=== PATIENT | female | born 1955 | race Caucasian/White ===

== ENCOUNTER 2016-11-05 05:25 | Day surgery (SDC) | payer MEDICARE ==
[2016-11-04 15:34] LABS: HEMATOCRIT 41.2 % (36.0-48.0); HEMOGLOBIN 13.6 g/dL (12-16); MCH 29.3 pg (26.0-34.0); MCV 88.8 fL (80.0-100.0); MEAN PLATELET VOLUME 10.7 fL (7.4-10.4); RBC 4.64 10x6/uL (4.00-5.40); RDW 12.8 % (11.5-14.5); WBC 6.3 10x3/uL (4.8-10.8)
[~2016-11-05] VITALS: Ht 167.6 cm; Wt 90.7 kg
[~2016-11-05 05:25] MED LIST: GAVISCON E1 TAB.CHEW PO; NEXIUM20 MG PO; NEXIUM40 MG PO; PROZAC20 MG PO; TYLENOL W/CODEI1 TAB PO
[2016-11-05 09:59] VITALS: BP 130/76; Ht 167.6 cm; Wt 90.7 kg
--- NOTE | 2016-11-05 12:49 | NUR ---
1245-RECEIVED PT FROM OR SLEEPING WIHTOUT ANY DISTRESS POST OP SHOE ON LEFT FOOT FAMILY AT BEDSIDE WILL CONTINUE TO MONITOR
--- NOTE | 2016-11-05 13:27 | NUR ---
1327 LEFT FOOT ELEVATED AND ICED. NO NEEDS VOICED DROWSY.
--- NOTE | 2016-11-05 13:27 | NUR ---
3348 GAVE SCRIPTS TO FAMILY IBUPROFEN NORCO AND PHENERGAN. NO T HERE TO MAKE COPIES.
--- NOTE | 2016-11-05 14:26 | NUR ---
1350 IV DCD CATHETER INTACT WENT OVER DISCHARGE INSTRUCTIONS SHEET REVIEWED. HAS SCRIPTS FOR PHENERGAN NORCO AND IBUPROFEN ALREADY GIVEN TO FAMILY. 1400 TO HOME VIA W/C WITH FAMILY.
--- NOTE | 2016-11-26 16:40 | OP ---
PATIENT NAME: KRISTOPHER OGDEN MEDICAL RECORD: [id number] :51 LOCATION:JACK ADMISSION DATE: SURGEON: BURTON MANZANARES DATE OF OPERATION: 11/05/2016 SURGEON: Burton Manzanares DPM. PREOPERATIVE DIAGNOSIS: Hallux abductovalgus, left foot. POSTOPERATIVE DIAGNOSIS: Hallux abductovalgus, left foot. PROCEDURE: Marcos bunionectomy with one screw fixation, left foot. f ANESTHESIA: Local with monitored anesthesia care. HEMOSTASIS: Pneumatic ankle tourniquet inflated to 250 mmHg. ESTIMATED BLOOD LOSS: Minimal. MATERIALS: One 2.5-mm Eugene medical screw. INJECTABLES: 20 cc 0.5% bupivacaine plain. The patient has longstanding history of pain associated with the bunion deformity of the left foot. She has tried wider shoes to no avail. We have discussed the risks and benefits of the procedure, complications were discussed, her questions were answered. She was consented for Marcos bunionectomy of the left foot. The patient was brought in the operating room and placed in the operating table in supine position. A timeout was called with Dr. Manzanares, who identified the patient, the surgical site, and the surgery to be performed. Once appropriate anesthesia was obtained, the foot was prepped and draped in the usual aseptic manner. The pneumatic ankle tourniquet was inflated to 250 mmHg on the well-padded left ankle. Attention was directed to the dorsal aspect of the first metatarsophalangeal joint where a 6-cm linear incision was made. This incision was made just medial to the extensor hallucis longus tendon. This incision was carried deep through soft tissue with care being taken to retract all vital neurovascular structures. All bleeders were cauterized along the way. The first intermetatarsal space was then entered utilizing both blunt and sharp dissection. The conjoined tendon of the abductor hallucis muscle belly was then identified and sharply transected. The fibular sesamoidal ligament was also identified and sharply transected. Attention was then redirected to the dorsal aspect of the first metatarsophalangeal joint. The periosteum was then reflected from the joint, thus exposing the hypertrophied medial eminence of the first metatarsal head. Utilizing a sagittal saw, all hypertrophied bone was removed. Utilizing a sagittal saw, a V-shaped osteotomy was then created within the head of the first metatarsal. This is a through and through osteotomy with the apex oriented distally. The first metatarsal head was then translocated laterally on the metatarsal shaft and impacted. Next, utilizing the paper mill supervisor's recommended technique, one 2.5-mm screw was placed across the osteotomy. All remaining over OPERATIVE REPORT [id number] KRISTOPHER OGDEN bone from the medial aspect of the first metatarsal shaft was then removed with the sagittal saw. The surgical site was then irrigated with copious amounts of normal sterile saline. All sharp bone edges were then removed with a rasp. The periosteum was then reapproximated and coapted utilizing 3-0 Vicryl. The subcutaneous was then reapproximated and coapted utilizing 3-0 Vicryl. The skin was then reapproximated and coapted utilizing 4-0 nylon. A dressing consisting of Xeroform, 4 x 4's, Kerlix, and an Michi bandage was applied to the left foot. The pneumatic ankle tourniquet was deflated and capillary refill time is noted to be immediate to all digits of the left foot. The patient was discharged home with instructions to ice and elevate the left foot. She was dispensed a boot to help offload the surgical site. She has my cell phone number for any after hour difficulties and there were no complications with this procedure. TRANSINT:[id number] Voice Confirmation ID: [id number] DOCUMENT ID: [id number] BURTON MANZANARES at 1640 CC: [id number] DICTATION DATE: 11/05/16 1629 SITE SAFETY MANAGER: 11/05/162221 [facility] 11/05/16 [id number] [place] [address]
== END 2016-11-05 14:00 | disposition home or self-care (01) ==
LOC: D.PAN 05:25 → D.OPS 11:30 → D.PAN 14:00
PROVIDERS: Anesthesiology
DX: M20.12 Hallux valgus (acquired), left foot (principal)

== ENCOUNTER 2017-09-24 09:43 | Outpatient (CLI) | payer MEDICARE ==
[2016-11-05 09:59] VITALS: BMI 32.3
--- NOTE | ~2017-09-24 | OP ---
PATIENT NAME: KRISTOPHER OGDEN MEDICAL RECORD: [id number] :51 LOCATION:D.CAT ADMISSION DATE: SURGEON: BALJINDER HUBER MD DATE OF OPERATION: 09/24/2017 PROCEDURES: 1. PTCA stent to RCA. 2. Left heart catheterization. 3. Selective coronary angiography. 4. Left ventriculogram. INDICATION: Unstable angina. PROCEDURE IN DETAIL: After informed consent was obtained and after detailed explanation of risks, benefits as well as alternative therapies, the patient elected to proceed with angiogram and angioplasty. The right radial area was prepped and draped in normal sterile fashion. Right radial artery was cannulated via modified Seldinger technique with placement of 6-Turkmen sheath. All catheters exchanged through this sheath. FINDINGS: Left ventriculogram was performed in standard 30-degree RICHARDSON view, reveals good cardiac wall motion throughout all segments. Overall ejection fraction estimated at 60%. SELECTIVE CORONARY ANGIOGRAPHY: 1. Left main showed no significant angiographic disease. 2. Left anterior descending has 80% stenosis proximally and 80% stenosis mid vessel. 3. Left circumflex has mild irregularities, but no flow-limiting stenosis. 4. Right coronary artery has a 90% stenosis times 2 in the mid vessel. PTCA STENT OF THE RIGHT CORONARY ARTERY: The stent used covering both lesions was a 3.0 x 38 mm Chuckie. Result was 0% residual stenosis. OVERALL IMPRESSION: Successful percutaneous transluminal coronary angioplasty stent of the right coronary artery going from 90% initial stenosis to 0% residual. PLAN: PTCA stent of the LAD in the near future. TRANSINT:[id number] Voice Confirmation ID: [id number] DOCUMENT ID: [id number] BALJINDER HUBER MD at 1025 CC: [id number] DICTATION DATE: 09/24/17 1305 FLYING II INSTRUCTOR: 09/24/17 1414 DEP CLI 09/24/17 [place] [id number]
--- NOTE | ~2017-09-24 | HEMODYNAMI ---
PATIENT:KRISTOPHER OGDEN MEDICAL RECORD: [id number] : 51 LOCATION:DLAUREEN ADMISSION DATE: 09/24/17 Generatedon:09/24/201713:07 Patient name: KRISTOPHER OGDEN Patient #: [id number] SSN: DO B: 1955 Date of study: 09/24/2017 Page: Of Hemodynamic Procedure Report Patient Data Patient Demographics Procedure consent was obtained First Name: KRISTOPHER Gender: Female Last Name: ALIN : 1955 Middle Initial: J Age: 62 year(s) Patient #: [id number] Race: Unknown Additional ID: [id number] Contact details Address: [address] [place] [address] State: [place] City: [facility] Zip code: [address] Past Medical History Allergies: No known allergies Admission Admission Data Admission Date: 09/24/2017 Admission Time: 9:43 Lab Results Lab Result Date: 09/24/2017 Lab Result Time: 0:00 Biochemistry Name Units Result Min Max BUN mg/dl 12 --(-*--)-- 7 18 Creatinine mg/dl 0.7 --(*---)-- 0.6 1.3 CBC Name Units Result Min Max Hemoglobin g/dl 13.4 -*(----)-- 13.5 17.5 Procedure Procedure Types Cath Procedure Diagnostic Procedure [facility] w/Coronaries PCI Procedure Coronary Stent Coronary Stent Initial Miscellaneous Procedures Moderate Sedation up to 15 minutes Procedure Description Procedure Date Procedure Date: 09/24/2017 Procedure Start Time: 12:51 Procedure End Time: 13:06 Procedure Staff Name Function Ariel Fonseca MD Performing Physician Monika Doll RT Monitor Nadeen Cobb RT Scrub Brittney Cortes RN Nurse Procedure Data Cath Procedure Fluoroscopy Diagnostic fluoroscopy Total fluoroscopy Time: 3.6 time: 3.6 min min Diagnostic fluoroscopy Total fluoroscopy dose: 637 dose: 637 mGy mGy Contrast Material Contrast Material Type Amount (ml) Isovue 300 98 Entry Location Entry Primary Successful Side Size Upsize Upsize Entry Closure Mendoza ccessful Closure Location (Fr) 1 (Fr) 2 (Fr) Remarks Device Remarks Radial Right 6 Fr Mechanical artery Short Compression Estimated blood loss: 10 ml Diagnostic catheters Device Type Used For End Catheter Placement DIAGNOSTIC [place] 110cm 5 Procedure Fr catheter ([id number]) Procedure Complications No complications Procedure Medications Medication Administration Route Dosage 0.9% NaCl I.V. 100 ml/hr Oxygen NC 2 l/min Lidocaine 2% added to field 20 Heparin Flush Bag added to field 2 bags (1000units/500ml NS) Radial Cocktail added to field 1 syringe (Verapomil 2mg/Nitro 400mcg/Heparin 1500units) Fentanyl I.V. 50 mcg Versed I.V. 1 mg Versed I.V. 1 mg Fentanyl I.V. 50 mcg Heparin Bolus I.V. 4000 units Integrilin (Bolus I.V. 7.3 ml 2mg/ml) Hemodynamics Rest HGB: 13.4 (g/dl) Heart Rate: 64 (bpm) Snapshots Pre Cath Intra NCS Post Cath Vital Signs Time Heart Resp SPO2 etCO2 NIBP (mmHg) Rhythm Pain Sedation Rate (ipm) (%) (mmHg) Status Level (bpm) 12:32:47 64 25 99 36 143/91(125) NSR 0 (11) 10(A) , No pain 12:37:01 67 23 99 36.8 139/83(118) NSR 0 (11) 10(A) , No pain 12:41:11 65 24 95 39 119/82(107) NSR 0 (11) 10(A) , No pain 12:45:21 63 14 98 39 118/75(106) NSR 0 (11) 10(A) , No pain 12:49:33 65 23 97 33 119/65(106) NSR 0 (11) 10(A) , No pain 12:53:43 74 16 94 26.2 74/49(69) NSR 0 (11) 9(A) , No pain 12:57:42 73 17 97 36 91/52(72) NSR 0 (11) 9(A) , No pain 13:01:48 79 16 98 36 87/56(72) NSR 0 (11) 9(A) , No pain 13:05:50 82 16 98 39.8 89/58(74) NSR 0 (11) 10(A) , No pain Medications Time Medication Route Dose Verified Delivered Reason Note s Effectiveness by by 12:32:02 0.9% NaCl I.V. 100 Arielnadine Lugo used for ml/hr Marian Cortes RN procedure 12:32:11 Oxygen NC 2 l/min Ariel Lugo Per physician Marian Cortes RN 12:32:18 Lidocaine 2% added 20ml Arielnadine George for local to vial Marian Fonseca MD anesthetic field 12:32:26 Heparin Flush added 2 bags Ariel George used for Bag to Marian Fonseca MD procedure (1000units/500ml field NS) 12:32:35 Radial Cocktail added 1 Ariel Ariel for (Verapomil to syringe Marian Fonseca MD vasodilation 2mg/Nitro field 400mcg/Heparin 1500units) 12:50:38 Fentanyl I.V. 50 mcg Ariel Lugo for sedation Marian Cortes RN 12:50:47 Versed I.V. 1 mg Ariel Lugo for anxiety Marian Cortes RN 12:52:04 Versed I.V. 1 mg Ariel Lugo for anxiety Marian Cortes RN 12:52:10 Fentanyl I.V. 50 mcg Ariel Lugo for sedation Marian Cortes RN 12:57:09 Heparin Bolus I.V. 4000 Ariel Maciasfany for veri fied units Marian oCrtes RN anticoagulation by 12:57:24 Integrilin I.V. 7.3 ml Ariel Lugo for wast e (Bolus 2mg/ml) Marian Cortes RN antiplatelet 2.7ML therapy Procedure Log Time Note 12:14:21 Lab Result : Creatinine 0.7 mg/dl 12:14:21 Lab Result : BUN 12 mg/dl 12:14:21 Lab Result : Hemoglobin 13.4 g/dl 12:14:25 Lab results completed and on chart. 12:14:42 Nadeen Cobb RT(R) sent for patient. Start room use. 12:26:35 Patient received from ED to CCL 2 Alert and oriented. Tansferred to table in Supine position. 12:26:36 Warm blankets applied, and blanca hugger turned on for patient comfort. 12:26:37 Correct patient and procedure confirmed by team. 12::38 Signed procedure consent form obtained from patient. 12::39 ECG and BP/O2 sat monitors applied to patient. 12::44 Vital chart was started 12:32:02 0.9% NaCl 100 ml/hr I.V. was administered by Brittney Cortes RN; used for procedure; 12:32:05 Baseline sample Acquired. 12:32:11 Oxygen 2 l/min NC was administered by Brittney Cortes RN; Per physician; 12:32:18 Lidocaine 2% 20ml vial added to field was administered by Ariel Fonseca MD; for local anesthetic; 12:32:26 Heparin Flush Bag (1000units/500ml NS) 2 bags added to field was administered by Ariel Fonseca MD; used for procedure; 12:32:35 Radial Cocktail (Verapomil 2mg/Nitro 400mcg/Heparin 1500units) 1 syringe added to field was administered by Ariel Fonseca MD; for vasodilation; 12:34:52 Baseline sample Acquired. 12:34:57 Rhythm: sinus rhythm 12:34:58 Full Disclosure recording started 12:35:02 H&P Date Dictated: 09/24/2017 Within 30 days and on chart.. 12:35:03 Pre-procedure instructions explained to patient. 12:35:03 Pre-op teaching completed and patient verbalized understanding. 12:35:08 Family in waiting room. 12:35:11 Patient NPO since Breakfast. 12:37:16 Patient allergic to No known allergies 12:37:18 Is the patient allergic to Iodine/contrast media? No. 12:37:21 Is patient on blood thinner?Yes 12:37:23 ACC The patient was administered the following blood thiners within the last 24 hours: ACCPlavix 12:37:27 Patient diabetic? No. 12:37:28 Patient not . Patient has had tubal. 12:37:31 Previous problem with sedation/anesthesia? No ? 12:37:32 Snore? Yes 12:37:33 Sleep apnea? Yes 12:37:34 Deviated septum? No 12:37:35 Opens mouth fully? Yes 12:37:36 Sticks out tongue? Yes 12:37:38 Airway obstruction? No ? 12:37:40 Dentures? No ? 12:37:44 Modified Carlos's test Ulnar < 7 seconds 12:37:46 Patient pain scale 0/10 ?. 12:38:03 IV patent on arrival in right forearm with 0.9% NaCl at [facility]. 12:38:09 Right Radial & Right Groin area was prepped with chlora-prep and draped in sterile fashion 12:38:10 Alarms reviewed by R. N. 12:38:10 Sharps counted by scrub and verified by R.N. 12:39:14 Use device set Radial Dx or PCI 12:39:15 ACIST Syringe (91295) opened to sterile field. 12:39:17 Bag Decanter (2002S) opened to sterile field. 12:39:19 ACIST Manifold (35718) opened to sterile field. 12:39:20 ACIST Hand Control (52693) opened to sterile field. 12:39:20 Tegaderm 4 x 4 (1626W) opened to sterile field. 12:39:23 Medline Cath Pack ([id number]) opened to sterile field. 12:39:24 SHEATH 6FR Slender ([id number]) opened to sterile field. 12:39:24 DIAGNOSTIC WIRE .035 260cm J wire (057783) opened to sterile field. 12:39:27 MBrace Wrist Support ([id number]) opened to sterile field. 12:45:17 Zero performed for pressure channel P1 12:48:36 --------ALL STOP TIME OUT------ 12:48:37 Final Timeout: patient, procedure, and site verified with staff and physician. All members of the team are in agreement. 12:48:38 Right Radial & Right Groin site verified by team. 12:48:41 Physical assessment completed. ASA score P 2 - A patient with mild systemic disease as per Ariel Fonseca MD. 12:48:44 Sedation plan: IV Moderate Sedation Medication:Versed, Fentanyl 12:50:38 Fentanyl 50 mcg I.V. was administered by Brittney Cortes RN; for sedation; 12:50:47 Versed 1 mg I.V. was administered by Brittney Cortes RN; for anxiety; 12:51:16 Procedure started. 12:51:21 Local anesthetic to right radial artery with Lidocaine 2% by Ariel Fonseca MD.INITIAL ACCESS ONLY 12:52:04 Versed 1 mg I.V. was administered by Brittney Cortes RN; for anxiety; 12:52:08 A 6 Fr Short sheath was inserted into the Right Radial artery 12:52:10 Fentanyl 50 mcg I.V. was administered by Brittney Cortes RN; for sedation; 12:53:00 A DIAGNOSTIC [place] 110cm 5 Fr catheter (555185) was advanced over the wire and used for Procedure. 12:53:18 LV gram done using RICHARDSON 12:53:34 EF : 60 % 12:53:37 Injector settings: Ml/sec: 7, Volume: 15, 12:54:08 LCA angiography performed. 12:55:13 RCA angiography performed. 12:56:17 Catheter removed. 12:56:27 CHOICE PT Extra Support J 300cm guide wire ([id number]) opened to sterile field. 12:56:29 GUIDE 6FR AR 2.0 catheter ([id number]) opened to sterile field. 12:56:37 6 Fr AR2 guide catheter was inserted over the wire 12:56:43 CHOICE PT 300 wire advanced. 12:56:51 Merit INFLATION SYRINGE opened to sterile field. 12:57:09 Heparin Bolus 4000 units I.V. was administered by Brittney Cortes RN; for anticoagulation; verified by 12:57:24 Integrilin (Bolus 2mg/ml) 7.3 ml I.V. was administered by Brittney Cortes RN; for antiplatelet therapy; waste 2.7ML 12:58:14 Wire advanced across lesion. 12:59:55 Inflation number: 1 A EUPHORA 3.0 x 20 Balloon ([id number]) was prepped and advanced across the Mid RCA, then inflated to 13 ANNALEE for 0:00 (min:sec). 13:00:07 Inflation number: 2 The EUPHORA 3.0 x 20 Balloon ([id number]) was reinflated across the Mid RCA, to 13 ANNALEE for 0:10 (min:sec). 13:00:41 Balloon removed over the wire. 13:01:45 Inflation Number: 3 A DELBERT OTW 3.0 x 38 stent ([id number]) was prepped and advanced across the Mid RCA. The stent was deployed at 13 ANNALEE for 0:10 (min:sec). 13:02:53 Stent catheter was removed intact over wire. 13:02:54 Wire removed. 13:02:54 Guide catheter removed. 13:03:59 TR BAND Standard ([id number]) opened to sterile field. 13:04:07 Sheath removed intact; hemostasis achieved with Mechanical Compression to the Right Radial artery. 13:04:09 Procedure ended.(Physican Out) 13:04:18 Fluoroscopy time 03.60 minutes. 13:04:22 Fluoroscopy dose: 637 mGy 13:04:22 Flurop Dose total: 637 13:04:26 Contrast amount:Isovue 300 98ml. 13:04:27 Sharps counted by scrub and verified by R.N. 13:04:31 TR band inflated with 10cc of air. 13:05:29 Post-procedure physical assessment completed. ASA score P 2 - A patient with mild systemic disease as per Ariel Fonseca MD. 13:05:32 Post procedure rhythm: unchanged. 13:05:35 Estimated blood loss: 10 ml 13:05:41 Post procedure instruction explained to patient.Patient verbalizes understanding. 13:05:42 Patient needs reinforcement of post procedure teaching. 13:05:51 Procedure type changed to Cath procedure, Diagnostic procedure, LHC, LHC w/Coronaries, PCI procedure, Coronary Stent, Coronary Stent Initial, Miscellaneous Procedures, Moderate Sedation up to 15 minutes 13:06:27 Procedure and supply charges have been captured, reviewed, submitted and are correct. 13:06:29 Procedure Complication : No complications 13:06:31 Vital chart was stopped 13:06:33 See physician's report for complete and final results. 13:06:35 Report given to Pre/Post Procedure Room. 13:06:38 Patient transfered to Pre/Post Procedure Room with Bed. 13:06:42 Procedure ended. 13:06:42 Full Disclosure recording stopped 13:06:47 End room use (Document Last) Intervention Summary Intervention Notes Time ActionType Lesion and Equipment Action# Pressure Duration Attributes Used 12:59:55 Inflate Mid RCA EUPHORA 3.0 x 1 13 00:00 balloon 20 Balloon ([id number]) 13:00:07 Reinflate Mid RCA EUPHORA 3.0 x 2 13 00:10 balloon 20 Balloon ([id number]) 13:01:45 Place stent Mid RCA DELBERT OTW 3.0 3 13 00:10 x 38 stent ([id number]) Device Usage Item Name Manufacture Quantity Catalog Number Hospital Part Current [facility] Lot# / Charge Number Stock Stock Serial# Code ACIST Syringe Acist 1 92047 933416 424418 [id number] 20 (96569) Medical Systems Inc Bag Decanter Microtek 1 2001S 989394 77108 597381 5 (2001S) Medical Inc. ACIST Acist 1 40949 478219 979960 010517 5 Manifold Medical (27847) Systems Inc ACIST Hand Acist 1 72981 954682 120522 067455 5 Control Medical (01076) Systems Inc Tegaderm 4 x 3M 1 1626W 466075 319995 366116 5 4 (1626W) Medline Cath Cardinal 1 [id number] 780279 12661 088454 5 Pack [facility] ([id number]) SHEATH 6FR Terumo 1 [id number] 844357 546017 401734 40 Slender ([id number]) DIAGNOSTIC St Sergio 1 047758 660155 683642 019240 30 WIRE .035 260cm J wire (785884) MBrace Wrist Advanced 1 140-0250-00 742897 46110 793584 5 Support Vascular ([id number]) Dynamics DIAGNOSTIC Terumo 1 40-5013 982167 795988 861610 5 [place] 110cm 5 Fr catheter (722730) CHOICE PT [place] 1 [id number] 461413 026667 547543 5 Extra Support Scientific J 300cm guide wire ([id number]) GUIDE 6FR AR Medtronic 1 [id number] 551908 21358 755583 1 2.0 catheter ([id number]) Merit Medtronic 1 A08A 259478 71015 600547 5 INFLATION SYRINGE EUPHORA 3.0 x Medtronic 1 [id number] 870412 418204 050175 5 20 Balloon ([id number]) DELBERT OTW 3.0 Medtronic 1 [id number] 821573 7631305 750652 5 x 38 stent ([id number]) TR BAND Terumo 1 [id number] 868836 071130 378910 40 Standard ([id number]) Signature Audit [place] Stage Time Signature Unsigned Intra-Procedure 09/24/2017 Monika Doll 1:07:16 PM RT(R) Signatures Monitor : Monika Doll Signature : RT Date : Time : [place] [id number] [place] [address]
--- NOTE | ~2017-09-24 | CN ---
PATIENT NAME:KRISTOPHER OGDEN MEDICAL RECORD: [id number] : 51 LOCATION:D.CAT ADMIT DATE: ACCOUNT: [id number] CONSULTING PHYSICIAN: BALJINDER HUBER MD REFERRING PHYSICIAN: TEO PYLE MD DATE OF CONSULTATION: 09/24/2017 ADMITTING DIAGNOSES: 1. Chest pain compatible with angina. 2. Family history of coronary artery disease. HISTORY OF PRESENT ILLNESS: Ms. Ogden has had 1 month of increasing episodes of chest pain, chest discomfort compatible with angina with radiation to the left arm, a dull aching sensation across the anterior chest, very compatible with anginal symptomatology. Severe episodes today lasting multiple hours, still having chest pain. Her EKG is with nonspecific ST-T abnormalities. PHYSICAL EXAMINATION: GENERAL APPEARANCE: Well-nourished, well-developed, appears stated age. Level of distress, comfortable. PSYCHIATRIC: Mental status, alert, normal affect. Orientation, oriented to time, place and person. EYES: Lids and conjunctiva, noninjected. No discharge, no pallor. ENT: Lips, teeth, gums, normal dentition. Oropharynx, no cyanosis, no pallor. NECK: Carotid arteries, bilateral normal upstroke, no bruits, no thrills. JUGULAR VEINS: No jugular venous pressure or distention. CERVICAL LYMPH NODES: Nontender, nonenlarged. THYROID: Not enlarged. Nontender. No nodules. LUNGS: Respiratory effort, unlabored. CHEST: Normal curvature. No thoracic deformity. No chest wall tenderness. Percussion, resonant. Auscultation, clear. No wheezes, no rales, no rhonchi. CARDIOVASCULAR: Precordial exam, nondisplaced. No heaves or pericardial thrills. Rate and rhythm, regular. Heart sounds, normal S1, normal S2. No S3, no gallop, no rub. Systolic murmur, not heard. Diastolic murmur, not heard. EXTREMITIES: No cyanosis, no edema. Peripheral pulses, full and equal in all extremities, except as noted. No bruits appreciated. ABDOMEN: Soft, nondistended. Normal aorta. No bruit. Nontender. No masses. Liver, nontender, no hepatomegaly. Spleen, nontender, no splenomegaly. MUSCULOSKELETAL: No joint tenderness. No joint swelling. No erythema. NEUROLOGICAL: Normal gait, normal strength, normal tone. SKIN: Warm and dry. REVIEW OF SYSTEMS: The patient reports easy bruising but reports no swollen glands. The patient reports no fever, no night sweats, no significant weight gain, no significant weight loss. No significant exercise tolerance. The patient reports no dry eyes, no irritation, no vision change. Patient reports no difficulty hearing and no ear pain. Patient reports no frequent nose bleeds or nose and sinus problems. Patient reports on arm pain on exertion. No shortness of breath while lying down. No history of heart murmur. Patient reports no cough, no wheezing or coughing up blood. Patient reports no abdominal pain, no vomiting. Normal appetite. No diarrhea and not vomiting blood. No nausea and no constipation. Patient reports no incontinence. No difficulty urinating. No hematuria. No increased frequency. Patient reports no muscle aches. No weakness, no arthralgias, no back pain. No swelling of the extremities. Patient reports no abnormal mole, no jaundice, no rashes. Reports CONSULT REPORT [id number] KRISTOPHER OGDEN no loss of consciousness. No weakness and no numbness. No seizures, dizziness, or headaches. The patient reports no depression, no sleep disturbance, feeling safe in a relationship and no alcohol abuse. Patient reports on fatigue. Reports no runny nose or sinus pressure. No itching, no hives, and no frequent sneezing. OVERALL IMPRESSION: Chest pain in an escalating unstable fashion, most likely she has hemodynamically significant coronary artery disease. We will proceed with coronary angiography. Further care depends upon findings of the angiography. TRANSINT:[id number] Voice Confirmation ID: [id number] DOCUMENT ID: [id number] BALJINDER HUBER MD at 1025 CC: [id number] DICTATION DATE: 09/24/17 1136 STOCK ROLLER: 09/24/17 1323 DEP CLI 09/24/17 [place] [address]
[2017-09-24 10:27] LABS: BASOPHILS 0.6 % (0-2); EOSINOPHILS 0.8 % (0-7); HEMATOCRIT 39.8 % (36.0-48.0); HEMOGLOBIN 13.4 g/dL (12-16); IMMATURE GRANULOCYTES 0.2 % (0-5); LYMPHOCYTES 45.3 % (15-50); MCH 29.4 pg (26.0-34.0); MCHC 33.7 g/dL (31.0-37.0); MCV 87.3 fL (80.0-100.0); MEAN PLATELET VOLUME 10.7 fL (7.4-10.4); NEUTROPHILS 46.1 % (40-80); PLATELET COUNT 235 10x3/uL (130-400); RBC 4.56 10x6/uL (4.00-5.40); RDW 12.7 % (11.5-14.5); WBC 5.2 10x3/uL (4.8-10.8)
[2017-09-24 10:34] LABS: ALBUMIN 3.4 g/dL (3.4-5.0); ALKALINE PHOSPHATASE 86 U/L (46-116); ALT (SGPT) 35 U/L (10-68); BILIRUBIN - TOTAL 0.49 mg/dL (0.2-1.3); CALC OSMOLALITY 275 mosm/kg (275-300); CALCIUM 9.2 mg/dL (8.5-10.1); CARBON DIOXIDE 27.3 mmol/L (21.0-32.0); CHLORIDE - SERUM 102 mmol/L (98-107); CREATININE - SERUM 0.7 mg/dL (0.6-1.3); GLUCOSE 105 mg/dL (74-106); PROTEIN - SERUM 6.8 g/dL (6.4-8.2); SODIUM 138 mmol/L (136-145); UREA NITROGEN 12 mg/dL (7-18); eGFR NON AFRICAN AMERICAN 89 mL/min (90-120)
[2017-09-24 10:37] LABS: POTASSIUM - SERUM 4.5 mmol/L (3.5-5.1)
[2017-09-24 10:46] LABS: CHOL - HDL RATIO 5.8 ratio (2.3-4.1); CHOLESTEROL, TOTAL 250 mg/dL (0-200); CKMB 0.5 U/L (0.0-3.6); CREATINE KINASE 84 UL (21-215); HDL CHOLESTEROL 43 mg/dL (32-96); LDL CHOLESTEROL 183 mg/dL (0-100); LDL-HDL RATIO 4.3 ratio (1.5-3.5); TRIGLYCERIDE 123 mg/dL (30-200); TROPONIN-I < 0.017 ng/mL (0.000-0.060)
[2017-09-24 13:15] LABS: APPEARANCE HAZY (CLEAR); BILIRUBIN NEGATIVE (NEGATIVE); COLOR YELLOW (YELLOW); GLUCOSE NEGATIVE (NEGATIVE); KETONE NEGATIVE (NEGATIVE); NITRITE NEGATIVE (NEGATIVE); PROTEIN NEGATIVE (NEGATIVE); SPECIFIC GRAVITY 1.015 (1.005-1.020); UROBILINOGEN NORMAL (NORMAL)
[2017-09-24 13:16] LABS: BACTERIA FEW /hpf (NONE SEEN); EPITHELIAL CELLS 0-5 /hpf (0-5); MUCUS <1+ /lpf (NONE SEEN); WHITE CELLS - URINE 0-5 /hpf (0-5)
[2017-09-24] MEDS ORDERED: BAYER CHEWABLE81 MG PO (13:25)
[2017-09-24] MEDS ORDERED: PLAVIX75 MG PO (13:25)
== END 2017-09-24 17:00 | disposition home or self-care (01) ==
LOC: D.CATH 09:43 → D.ER 09:43 → EDSTATUS 13:00 → D.CATH 17:00
PROVIDERS: Emergency Medicine; Nurse Practitioner Family
DX: I20.0 Unstable angina (principal); Z82.49 Family history of ischemic heart disease and other diseases of the circulatory system; Z01.812 Encounter for preprocedural laboratory examination
CPT/HCPCS: 93458; C9600

== ENCOUNTER 2017-09-29 07:41 | Outpatient (CLI) | payer MEDICARE ==
[~2017-09-29] VITALS: Ht 167.6 cm; Wt 81.8 kg
--- NOTE | ~2017-09-29 | OP ---
PATIENT NAME: KRISTOPHER OGDEN MEDICAL RECORD: [id number] :51 LOCATION:D.CAT ADMISSION DATE: SURGEON: BALJINDER HUBER MD DATE OF OPERATION: 09/29/2017 PROCEDURES: 1. PTCA stent to LAD. 2. Selective coronary angiography. INDICATION: Angina and coronary artery disease. PROCEDURE IN DETAIL: After informed consent was obtained and after a detailed explanation of the risks, benefits as well as alternative therapies, the patient elected to proceed with angiogram and angioplasty. The right radial area was prepped and draped in normal sterile fashion. The right radial artery was cannulated via modified Seldinger technique with placement of 6-Bahamian sheath. All catheters exchanged through this sheath. FINDINGS: The left anterior descending has 80% stenosis proximally, 90% stenosis in the mid vessel. The proximal lesion was addressed with a 3.0 x 12, the mid vessel with a 2.5 x 15, both Gentry stents. Result was 0% residual stenosis. OVERALL IMPRESSION: Successful percutaneous transluminal coronary angioplasty stent of the left anterior descending going from 90% initial stenosis to 0% residual. TRANSINT:[id number] Voice Confirmation ID: [id number] DOCUMENT ID: [id number] BALJINDER HUBER MD at 1025 CC: [id number] DICTATION DATE: 09/29/17 0956 FOREST FIRE OFFICER: 09/29/17 1025 [facility] CLI 09/29/[address] [address]
--- NOTE | ~2017-09-29 | HP ---
PATIENT: KRISTOPHER OGDEN MEDICAL RECORD: [id number] ACCOUNT: [id number] LOCATION:IVÁN : 51 ADMISSION DATE: 09/29/17 HISTORY AND PHYSICAL EXAMINATION ADMITTING DIAGNOSES: 1. Angina. 2. Recent PTCA stent of the RCA with concomitant disease to LAD. HISTORY OF PRESENT ILLNESS: Mrs. Ogden presents with unstable anginal symptomatology, found to have 2-vessel disease of the RCA and LAD, underwent successful PTCA stent of the RCA, now brought back for PTCA stent of the LAD. PHYSICAL EXAMINATION: GENERAL APPEARANCE: Well-nourished, well-developed, appears stated age. Level of distress, comfortable. PSYCHIATRIC: Mental status, alert, normal affect. Orientation, oriented to time, place and person. EYES: Lids and conjunctiva, noninjected. No discharge, no pallor. ENT: Lips, teeth, gums, normal dentition. Oropharynx, no cyanosis, no pallor. NECK: Carotid arteries, bilateral normal upstroke, no bruits, no thrills. JUGULAR VEINS: No jugular venous pressure or distention. CERVICAL LYMPH NODES: Nontender, nonenlarged. THYROID: Not enlarged. Nontender. No nodules. LUNGS: Respiratory effort, unlabored. CHEST: Normal curvature. No thoracic deformity. No chest wall tenderness. Percussion, resonant. Auscultation, clear. No wheezes, no rales, no rhonchi. CARDIOVASCULAR: Precordial exam, nondisplaced. No heaves or pericardial thrills. Rate and rhythm, regular. Heart sounds, normal S1, normal S2. No S3, no gallop, no rub. Systolic murmur, not heard. Diastolic murmur, not heard. EXTREMITIES: No cyanosis, no edema. Peripheral pulses, full and equal in all extremities, except as noted. No bruits appreciated. ABDOMEN: Soft, nondistended. Normal aorta. No bruit. Nontender. No masses. Liver, nontender, no hepatomegaly. Spleen, nontender, no splenomegaly. MUSCULOSKELETAL: No joint tenderness. No joint swelling. No erythema. NEUROLOGICAL: Normal gait, normal strength, normal tone. SKIN: Warm and dry. REVIEW OF SYSTEMS: The patient reports easy bruising but reports no swollen glands. The patient reports no fever, no night sweats, no significant weight gain, no significant weight loss. No significant exercise tolerance. The patient reports no dry eyes, no irritation, no vision change. Patient reports no difficulty hearing and no ear pain. Patient reports no frequent nose bleeds or nose and sinus problems. Patient reports on arm pain on exertion. No shortness of breath while lying down. No history of heart murmur. Patient reports no cough, no wheezing or coughing up blood. Patient reports no abdominal pain, no vomiting. Normal appetite. No diarrhea and not vomiting blood. No nausea and no constipation. Patient reports no incontinence. No difficulty urinating. No hematuria. No increased frequency. Patient reports no muscle aches. No weakness, no arthralgias, no back pain. No swelling of the extremities. Patient reports no abnormal mole, no jaundice, no rashes. Reports no loss of consciousness. No weakness and no numbness. No seizures, dizziness, or headaches. The patient reports no depression, no sleep disturbance, feeling safe in a relationship and no alcohol abuse. Patient reports on fatigue. Reports no runny nose or sinus pressure. No itching, no hives, and no frequent HISTORY AND PHYSICAL [id number] KRISTOPHER OGDEN sneezing. OVERALL IMPRESSION: Anginal symptomatology with critical disease of the LAD. We will proceed with PTCA stent of the LAD. TRANSINT:[id number] Voice Confirmation ID: [id number] DOCUMENT ID: [id number] BALJINDER HUBER MD at 1025 CC: [id number] DICTATION DATE: 09/29/[address] FORMS: 09/29/17 1021 [facility] CLI 09/29/[address] [address]
--- NOTE | ~2017-09-29 | HEMODYNAMI ---
PATIENT:KRISTOPHER OGDEN MEDICAL RECORD: [id number] : 51 LOCATION:DLAUREEN ADMISSION DATE: 09/29/17 Generatedon:09/29/20179:55 Patient name: KRISTOPHER OGDEN Patient #: [id number] SSN: DO B: 1955 Date of study: 09/29/2017 Page: Of Hemodynamic Procedure Report Patient Data Patient Demographics Procedure consent was obtained First Name: KRISTOPHER Gender: Female Last Name: ALIN : 1955 Middle Initial: J Age: 62 year(s) Patient #: [id number] Race: Unknown Additional ID: [id number] Contact details Address: [address] [place] [address] State: [place] [facility] [place]: [address] Past Medical History Allergies: No known allergies Admission Admission Data Admission Date: 09/29/2017 Admission Time: 7:41 Lab Results Lab Result Date: 09/24/2017 Lab Result Time: 0:00 Biochemistry Name Units Result Min Max BUN mg/dl 12 --(-*--)-- 7 18 Creatinine mg/dl 0.7 --(*---)-- 0.6 1.3 CBC Name Units Result Min Max Hemoglobin g/dl 13.4 -*(----)-- 13.5 17.5 Procedure Procedure Types Cath Procedure PCI Procedure Coronary Stent Coronary Stent Initial Miscellaneous Procedures Moderate Sedation up to 30 minutes Procedure Description Procedure Date Procedure Date: 09/29/2017 Procedure Start Time: 9:41 Procedure End Time: 9:52 Procedure Staff Name Function Ariel Fonseca MD Performing Physician Nadeen Cobb RT Monitor Elizabeth Centeno RT Scrub Erika Hutchinson RN Nurse Procedure Data Cath Procedure Fluoroscopy Diagnostic fluoroscopy Total fluoroscopy Time: 2.2 time: 2.2 min min Diagnostic fluoroscopy Total fluoroscopy dose: 373 dose: 373 mGy mGy Contrast Material Contrast Material Type Amount (ml) Isovue 300 45 Entry Location Entry Primary Successful Side Size Upsize Upsize Entry Closure Mendoza ccessful Closure Location (Fr) 1 (Fr) 2 (Fr) Remarks Device Remarks Radial Right 6 Fr Mechanical artery Short Compression Estimated blood loss: 5 ml Procedure Complications No complications Procedure Medications Medication Administration Route Dosage Oxygen NC 2 l/min Lidocaine 2% added to field 20 Heparin Flush Bag added to field 2 bags (1000units/500ml NS) 0.9% NaCl I.V. 100 ml/hr Radial Cocktail I.A. 1 syringe (Verapomil 2mg/Nitro 400mcg/Heparin 1500units) Versed I.V. 1 mg Fentanyl I.V. 50 mcg Versed I.V. 1 mg Fentanyl I.V. 50 mcg Heparin Bolus I.V. 4000 units Hemodynamics Rest HGB: 13.4 (g/dl) Heart Rate: 63 (bpm) Snapshots Pre Cath Intra NCS Post Cath Vital Signs Time Heart Resp SPO2 etCO2 NIBP (mmHg) Rhythm Pain Sedation Rate (ipm) (%) (mmHg) Status Level (bpm) 8:54:39 67 16 97 39.3 168/89(128) NSR 0 (11) 10(A) , No pain 8:59:01 76 16 98 39.3 172/99(135) NSR 0 (11) 10(A) , No pain 9:03:17 70 16 97 38.6 151/93(122) NSR 0 (11) 10(A) , No pain 9:07:35 71 16 96 21.2 153/93(113) NSR 0 (11) 10(A) , No pain 9:11:49 66 15 95 40.8 146/90(116) NSR 0 (11) 10(A) , No pain 9:16:12 65 16 95 25.7 130/84(108) NSR 0 (11) 10(A) , No pain 9:20:24 65 16 96 38.6 130/85(109) NSR 0 (11) 10(A) , No pain 9:24:38 65 16 96 37.9 125/82(106) NSR 0 (11) 10(A) , No pain 9:28:49 65 17 96 38.6 132/79(112) NSR 0 (11) 10(A) , No pain 9:32:59 65 18 95 31 126/82(101) NSR 0 (11) 10(A) , No pain 9:37:09 63 18 94 40.1 118/78(106) NSR 0 (11) 10(A) , No pain 9:41:21 63 14 95 43.9 111/72(84) NSR 0 (11) 9(A) , No pain 9:45:29 70 15 95 37.1 111/71(87) NSR 0 (11) 9(A) , No pain 9:49:39 73 16 94 40.1 119/73(86) NSR 0 (11) 10(A) , No pain Medications Time Medication Route Dose Verified Delivered Reason Notes Effectiveness by by 8:50:36 Oxygen NC 2 l/min Ariel Buffie used for Marian Hutchinson RN procedure 8:51:06 Lidocaine 2% added 20ml Ariel George for local to vial Marian Fonseca MD anesthetic field 8:51:12 Heparin Flush added 2 bags Ariel George used for Bag to Marian Fonseca MD procedure (1000units/500ml field NS) 8:51:20 0.9% NaCl I.V. 100 Ariel James Per physician ml/hr Marian Hutchinson RN 9:35:55 Versed I.V. 1 mg Ariel James for sedation Marian Hutchinson RN 9:36:01 Fentanyl I.V. 50 mcg Ariel James for sedation Marian Hutchinson RN 9:40:17 Versed I.V. 1 mg Ariel James for sedation Marian Hutchinson RN 9:40:20 Fentanyl I.V. 50 mcg Ariel James for sedation Marian Hutchinson RN 9:42:29 Radial Cocktail I.A. 1 Ariel George for (Verapomil syringe Marian Fonseca MD vasodilation 2mg/Nitro 400mcg/Heparin 1500units) 9:43:56 Heparin Bolus I.V. 4000 Ariel James for verif ied units Marian Hutchinson RN anticoagulation with dr fonseca Procedure Log Time Note 8:39:56 Diagnostic Cath status Elective 8:39:58 Nadeen Cobb RT(R) sent for patient. Start room use. 8:39:59 Time tracking: Regular hours 8:40:04 Plan of Care:Hemodynamics will remain stable., Cardiac rhythm will remain stable., Comfort level will be maintained., Respiratory function will remain adequate., Patient/ family verbilizes understanding of procedure., Procedure tolerated without complication., Recovers from procedure without complications.. 8:40:42 Patient received from Pre/Post Procedure Room to CCL 2 Alert and oriented. Tansferred to table in Supine position. 8:46:56 Warm blankets applied, and blanca hugger turned on for patient comfort. 8:46:57 Correct patient and procedure confirmed by team. 8:46:58 Signed procedure consent form obtained from patient. 8:46:59 ECG and BP/O2 sat monitors applied to patient. 8:49:28 Vital chart was started 8:49:36 Baseline sample Acquired. 8:49:40 Rhythm: sinus rhythm 8:49:42 Full Disclosure recording started 8:50:36 Oxygen 2 l/min NC was administered by Erika Hutchinson RN; used for procedure; 8:51:06 Lidocaine 2% 20ml vial added to field was administered by Ariel Fonseca MD; for local anesthetic; 8:51:12 Heparin Flush Bag (1000units/500ml NS) 2 bags added to field was administered by Ariel Fonseca MD; used for procedure; 8:51:20 0.9% NaCl 100 ml/hr I.V. was administered by Erika Hutchinson RN; Per physician; 8:55:27 H&P Date Dictated: 09/29/2017 New H&P dictated by physician.. 8:55:28 Pre-procedure instructions explained to patient. 8:55:29 Pre-op teaching completed and patient verbalized understanding. 8:55:31 Family in patients room. 8:55:52 Patient NPO since Midnight. 8:56:08 Is the patient allergic to Iodine/contrast media? No. 8:56:09 Was the patient premedicated? No 8:56:10 Is patient on blood thinner?Yes 8:56:15 ACC The patient was administered the following blood thiners within the last 24 hours: ACCPlavix 8:56:17 Patient diabetic? No. 8:56:19 Previous problem with sedation/anesthesia? No ? 8:56:21 Snore? Yes 8:56:22 Sleep apnea? Yes 8:56:29 Opens mouth fully? Yes 8:56:30 Sticks out tongue? Yes 8:56:32 Airway obstruction? No ? 8:56:34 Dentures? No ? 8:56:37 Pre procedure: right dorsailis pedis pulse 2+ Normal; easily identifiable; not easily obliterated 8:56:47 Pre procedure: left dorsailis pedis pulse 2+ Normal; easily identifiable; not easily obliterated 8:56:52 Patient pain scale 0/10 ?. 8:56:58 IV patent on arrival in left forearm with 0.9% NaCl at [facility]. 8:57:04 Lab results completed and on chart. 8:57:08 Right Radial & Right Groin area was prepped with chlora-prep and draped in sterile fashion 8:57:09 Alarms reviewed by R. N. 8:57:10 Sharps counted by scrub and verified by R.N. 9:08:20 Zero performed for pressure channel P1 9:33:32 Physician arrived 9:33:33 --------ALL STOP TIME OUT------ 9:33:33 Final Timeout: patient, procedure, and site verified with staff and physician. All members of the team are in agreement. 9:33:35 Right Radial & Right Groin site verified by team. 9:33:40 Physical assessment completed. ASA score P 2 - A patient with mild systemic disease as per Ariel Fonseca MD. 9:34:06 Sedation plan: IV Moderate Sedation Medication:Versed, Fentanyl 9:34:32 Use device set TAUTH PCI 9:34:34 INFLATOR Merit BasixCompak ([id number]) opened to sterile field. 9:35:30 Use device set Acist 9:35:32 ACIST Manifold (82525) opened to sterile field. 9:35:33 ACIST Hand Control (00446) opened to sterile field. 9:35:33 ACIST Syringe (81875) opened to sterile field. 9:35:55 Versed 1 mg I.V. was administered by Erika Hutchinson RN; for sedation; 9:36:01 Fentanyl 50 mcg I.V. was administered by Erika Hutchinson RN; for sedation; 9:37:25 SHEATH 6FR Slender ([id number]) opened to sterile field. 9:40:17 Versed 1 mg I.V. was administered by Erika Hutchinson RN; for sedation; 9:40:20 Fentanyl 50 mcg I.V. was administered by Erika Hutchinson RN; for sedation; 9:41:08 Procedure started. 9:41:16 Local anesthetic to right radial artery with Lidocaine 2% by Ariel Fonseca MD.INITIAL ACCESS ONLY 9:42:14 A 6 Fr Short sheath was inserted into the Right Radial artery 9:42:29 Radial Cocktail (Verapomil 2mg/Nitro 400mcg/Heparin 1500units) 1 syringe I.A. was administered by Ariel Fonseca MD; for vasodilation; 9:43:02 CHOICE PT Extra Support 182cm wire ([id number]) opened to sterile field. 9:43:43 GUIDE 6FR XBLAD 3.5 catheter ([id number]) opened to sterile field. 9:43:53 6 Fr xblad 3.5 guide catheter was inserted over the wire 9:43:54 LCA angiography performed. 9:43:56 Heparin Bolus 4000 units I.V. was administered by Erika Hutchinson RN; for anticoagulation; verified with dr fonseca 9:43:59 choice pt wire advanced. 9:44:01 Wire advanced across lesion. 9:46:19 Inflation Number: 1 A DELBERT RX 2.5 x 15 stent ([id number]) was prepped and advanced across the Mid LAD. The stent was deployed at 11 ANNALEE for 0:10 (min:sec). 9:47:10 Stent catheter was removed intact over wire. 9:47:56 Inflation Number: 1 A DELBERT RX 3.0 x 12 stent ([id number]) was prepped and advanced across the Prox LAD. The stent was deployed at 11 ANNALEE for 0:10 (min:sec). 9:48:37 Stent catheter was removed intact over wire. 9:48:38 Wire removed. 9:48:38 Guide catheter removed. 9:48:53 TR BAND Standard ([id number]) opened to sterile field. 9:49:05 Sheath removed intact; hemostasis achieved with Mechanical Compression to the Right Radial artery. 9:49:07 Procedure ended.(Physican Out) 9:51:36 Fluoroscopy time 02.20 minutes. 9:51:41 Flurop Dose total: 373 9:51:41 Fluoroscopy dose: 373 mGy 9:51:45 Contrast amount:Isovue 300 45ml. 9:51:47 Sharps counted by scrub and verified by R.N. 9:51:54 TR band inflated with 10cc of air. 9:51:56 Insertion/operative site no bleeding no hematoma. 9:51:59 Post right radial artery:stable 9:52:03 Post procedure rhythm: unchanged. 9:52:06 Estimated blood loss: 5 ml 9:52:07 Post procedure instruction explained to patient.Patient verbalizes understanding. 9:52:07 Patient needs reinforcement of post procedure teaching. 9:52:21 Procedure type changed to Cath procedure, PCI procedure, Coronary Stent, Coronary Stent Initial, Miscellaneous Procedures, Moderate Sedation up to 30 minutes 9:52:22 Procedure and supply charges have been captured, reviewed, submitted and are correct. 9:52:26 Procedure Complication : No complications 9:52:28 Vital chart was stopped 9:52:29 See physician's report for complete and final results. 9::52 Report given to Pre/Post Procedure Room. 9:52:54 Patient transfered to Pre/Post Procedure Room with Stretcher. 9:52:56 Procedure ended. 9:52:56 Full Disclosure recording stopped 9:53:02 ACC-PCI Only Patient was given prescriptions, or instructed by Ariel Fonseca MD to start/continue the following medications upon discharge: Plavix 9:53:03 End room use (Document Last) Intervention Summary Intervention Notes Time ActionType Lesion and Equipment Used Action# Pressure Duration Attributes 9:46:19 Place stent Mid LAD DELBERT RX 2.5 x 1 11 00:10 15 stent ([id number]) 9:47:56 Place stent Prox LAD DELBERT RX 3.0 x 1 11 00:10 12 stent ([id number]) Device Usage Item Name Manufacture Quantity Catalog Number Hospital Part Current M inimal Lot# / Charge Number Stock Stock Serial# Code INFLATOR Merit Merit 1 [id number] 110071 838647 019618 1 5 PureVideo Networks ([id number]) ACIST Manifold Acist 1 83405 114769 792383 668372 5 (00428) Medical Systems Inc ACIST Hand Acist 1 05127 074385 986647 217280 5 Control Medical (36659) Systems Inc ACIST Syringe Acist 1 65584 103582 536344 783555 2 0 (50982) Medical Systems Inc SHEATH 6FR Terumo 1 [id number] 468278 970871 779314 4 0 Slender ([id number]) CHOICE PT [place] 1 [id number] 620456 180825 968179 5 Extra Support Scientific 182cm wire ([id number]) GUIDE 6FR Cardinal 1 [id number] 512616 888268 088289 1 0 XBLAD 3.5 Health catheter ([id number]) DELBERT RX 2.5 x Medtronic 1 [id number] 157697 7121474 003509 5 [id number] 15 stent ([id number]) DELBERT RX 3.0 x Medtronic 1 [id number] 664380 1334686 185692 5 [id number] 12 stent ([id number]) TR BAND Terumo 1 [id number] 911378 950660 675379 4 0 Standard ([id number]) Signature Audit [place] Stage Time Signature Unsigned Intra-Procedure 09/29/2017 Nadeen Cobb 9:55:30 AM RT(R) Signatures Monitor : Nadeen Cobb RT Signature : Date : Time : [place] [id number] [place] [address]
[~2017-09-29 07:41] MED LIST changes: +BAYER CHEWABLE81 MG PO; +PLAVIX75 MG PO
[2017-09-29 08:07] VITALS: BP 153/89; Ht 167.6 cm; Wt 81.8 kg
[2017-09-29 08:13] LABS: BASOPHILS 0.6 % (0-2); EOSINOPHILS 1.7 % (0-7); HEMOGLOBIN 14.5 g/dL (12-16); IMMATURE GRANULOCYTES 0.2 % (0-5); LYMPHOCYTES 39.9 % (15-50); MCH 29.8 pg (26.0-34.0); MCHC 33.7 g/dL (31.0-37.0); MCV 88.3 fL (80.0-100.0); MEAN PLATELET VOLUME 10.3 fL (7.4-10.4); MONOCYTES 6.9 % (2-11); NEUTROPHILS 50.7 % (40-80); PLATELET COUNT 255 10x3/uL (130-400); RBC 4.87 10x6/uL (4.00-5.40); RDW 12.7 % (11.5-14.5); WBC 4.6 10x3/uL (4.8-10.8)
[2017-09-29 08:26] LABS: CALC OSMOLALITY 277 mosm/kg (275-300); CALCIUM 8.8 mg/dL (8.5-10.1); CARBON DIOXIDE 26.4 mmol/L (21.0-32.0); CHLORIDE - SERUM 103 mmol/L (98-107); CREATININE - SERUM 0.8 mg/dL (0.6-1.3); GLUCOSE 103 mg/dL (74-106); POTASSIUM - SERUM 3.7 mmol/L (3.5-5.1); SODIUM 140 mmol/L (136-145); UREA NITROGEN 9 mg/dL (7-18); eGFR NON AFRICAN AMERICAN 76 mL/min (90-120)
== END 2017-09-29 14:10 | disposition home or self-care (01) ==
LOC: D.CATH 07:41
PROVIDERS: Internal Medicine Interventional Cardiology
DX: I25.110 Atherosclerotic heart disease of native coronary artery with unstable angina pectoris (principal); Z01.812 Encounter for preprocedural laboratory examination

== ENCOUNTER → 2018-04-07 14:47 | Outpatient (CLI) | payer MEDICARE ==
[2017-09-29 08:07] VITALS: BMI 29.1
[~2018-04-07 14:47] MED LIST changes: +LEXAPRO20 MG PO; +LINZESS145 MCG PO; +LIPITOR80 MG PO
== END | disposition home or self-care (01) ==
LOC: D.MRI 14:47
DX: M25.562 Pain in left knee (principal)

== ENCOUNTER → 2018-05-12 10:52 | Outpatient (CLI) | payer MEDICARE ==
[2017-09-29 08:07] VITALS: BMI 29.1
== END | disposition home or self-care (01) ==
LOC: D.NM 05-05 11:30
DX: K21.9 Gastro-esophageal reflux disease without esophagitis (principal); K58.2 Mixed irritable bowel syndrome

== ENCOUNTER 2018-05-13 08:00 | Outpatient (CLI) | payer MEDICARE ==
[~2018-05-13 08:00] MED LIST changes: -LEXAPRO20 MG PO; -LINZESS145 MCG PO; -LIPITOR80 MG PO
[2018-05-13] MEDS ORDERED: LIPITOR80 MG PO (10:08)
[2018-05-13] MEDS ORDERED: LINZESS145 MCG PO (10:09)
[2018-05-13] MEDS ORDERED: LEXAPRO20 MG PO (10:11)
[2018-05-19 06:46] VITALS: BMI 35.6
== END 2018-05-13 08:01 | disposition home or self-care (01) ==
LOC: D.OPS 08:00
DX: S83.282A Other tear of lateral meniscus, current injury, left knee, initial encounter (principal); Z53.9 Procedure and treatment not carried out, unspecified reason

== ENCOUNTER 2018-05-19 05:20 | Day surgery (SDC) | payer MEDICARE ==
[2018-05-13 10:58] LABS: HEMATOCRIT 41.1 % (36.0-48.0); HEMOGLOBIN 13.8 g/dL (12-16); MCH 28.4 pg (26.0-34.0); MCHC 33.6 g/dL (31.0-37.0); MCV 84.6 fL (80.0-100.0); MEAN PLATELET VOLUME 9.8 fL (7.4-10.4); NEUTROPHILS 56.3 % (40-80); PLATELET COUNT 204 10x3/uL (130-400); RBC 4.86 10x6/uL (4.00-5.40); RDW 12.9 % (11.5-14.5); WBC 5.6 10x3/uL (4.8-10.8)
[2018-05-13 11:11] LABS: ANION GAP 10.8 mmol/L (8-16); CALCIUM 8.7 mg/dL (8.5-10.1); CARBON DIOXIDE 27.2 mmol/L (21.0-32.0)
[~2018-05-19] VITALS: Ht 167.6 cm; Wt 99.8 kg
[~2018-05-19 05:20] MED LIST changes: +LEXAPRO20 MG PO; +LINZESS145 MCG PO; +LIPITOR80 MG PO
[2018-05-19 06:24] VITALS: BP 113/67; BMI 35.6
[2018-05-19 06:42] VITALS: BP 113/637; BMI 35.6
[2018-05-19 06:46] VITALS: BP 113/67; Ht 167.6 cm; Wt 99.8 kg
== END 2018-05-19 12:30 | disposition home or self-care (01) ==
LOC: D.OPS 05:20 → D.PAN 07:30 → D.OPS 07:30
PROVIDERS: Anesthesiology
DX: S83.242A Other tear of medial meniscus, current injury, left knee, initial encounter (principal); S83.282A Other tear of lateral meniscus, current injury, left knee, initial encounter; X58.XXXA Exposure to other specified factors, initial encounter; M22.42 Chondromalacia patellae, left knee; I10 Essential (primary) hypertension; Z87.891 Personal history of nicotine dependence; Z01.812 Encounter for preprocedural laboratory examination

== ENCOUNTER 2019-03-05 17:49 | Outpatient (CLI) | payer MEDICARE ==
[~2019-03-05] VITALS: Ht 167.6 cm; Wt 0.5 kg
--- NOTE | ~2019-03-05 | DS ---
PATIENT:KRISTOPHER OGDEN :51 MEDICAL RECORD: [id number] DISCHARGE SUMMARY ADMISSION DATE: 03/05/19 DISCHARGE DATE: 03/06/19 DIAGNOSES: 1. Unstable angina. 2. PTCA and stent, left main, on this admission. 3. Hypertension. 4. Hyperlipidemia. HOSPITAL COURSE: Ms. Ogden presents with unstable anginal symptomatology, found to have 67% stenosis of her left main. She underwent successful PTCA and stent of the left main. She had no further anginal symptomatology. She was discharged home with the addition of aspirin and Plavix to her medical regimen. She will follow up with [facility] in one month. TRANSINT:[id number] Voice Confirmation ID: [id number] DOCUMENT ID: [id number] BALJINDER HUBER MD CC: [id number] DICTATION DATE: 03/06/19 1144 TRIAL MANAGER: 03/06/19 2240 DEP CLI 03/06/19 [facility] [address] [place] [address]
--- NOTE | ~2019-03-05 | HEMODYNAMI ---
PATIENT:KRISTOPHER OGDEN MEDICAL RECORD: [id number] : 51 LOCATION:[id number] ADMISSION DATE: 03/05/19 Generatedon:03/06/201911:48 Patient name: KRISTOPHER OGDEN Patient #: [id number] SSN: DO B: 1955 Date of study: 03/06/2019 Page: Of Hemodynamic Procedure Report Patient Data Patient Demographics Procedure consent was obtained First Name: KRISTOPHER Gender: Female Last Name: ALIN : 1955 [facility] Initial: J Age: 63 year(s) Patient #: [id number] Race: Unknown Additional ID: [id number] Contact details [address]: [address] [place] [address] State: [place] [facility] [place] code: [address] Past Medical History Allergies: No known allergies Admission Admission Data Admission Date: 03/05/2019 Admission Time: 17:49 [facility] Results Lab Result Date: 03/06/2019 Lab Result Time: 0:00 Biochemistry Name Units Result Min Max BUN mg/dl 13 --(--*-)-- 7 18 Creatinine mg/dl 1 --(--*-)-- 0.6 1.3 CBC Name Units Result Min Max Hematocrit % 38 *-(----)-- 42 54 Hemoglobin g/dl 12.5 *-(----)-- 13.5 17.5 Procedure Procedure Types Cath Procedure Diagnostic Procedure [facility] w/Coronaries FFR/IVUS Intra-Coronary IVUS Initial Sedation Charges Moderate Sedation up to 15 minutes PCI Procedure Coronary Stent Coronary Stent Initial Procedure Description Procedure Date Procedure Date: 03/06/2019 Procedure Start Time: 11:29 Procedure End Time: 11:47 Procedure Staff Name Function Ariel Fonseca MD Performing Physician Erika Hutchinson RN Manager Internship Jakub Beard RT Monitor Monika Doll RT Scrub Buddy Multani RN Nurse Procedure Data Cath Procedure Fluoroscopy Diagnostic fluoroscopy Total fluoroscopy Time: 4.9 time: 4.9 min min Diagnostic fluoroscopy Total fluoroscopy dose: dose: 1071 mGy 1071 mGy Contrast Material Contrast Material Type Amount (ml) Isovue 300 82 Entry Location Entry Primary Successful Side Size Upsize Upsize Entry Closure Mendoza ccessful Closure Location (Fr) 1 (Fr) 2 (Fr) Remarks Device Remarks Radial Right 6 Fr Mechanical artery Short Compression Estimated blood loss: 10 ml Diagnostic catheters Device Type Used For End Catheter Placement DIAGNOSTIC David 110cm 5 Procedure Fr catheter ([id number]) Procedure Complications No complications Procedure Medications Medication Administration Route Dosage 0.9% NaCl I.V. 100 ml/hr Oxygen etCO2 Nasal cannula 2 l/min Heparin Flush Bag added to field 2 bags (1000units/500ml NS) Lidocaine 2% added to field 20 Radial Cocktail added to field 1 syringe (Verapamil 2mg/Nitro 400mcg/Heparin 1500units) Versed I.V. 2 mg Fentanyl I.V. 100 mcg Radial Cocktail I.A. 1 syringe (Verapamil 2mg/Nitro 400mcg/Heparin 1500units) Heparin Bolus I.V. 4000 units Plavix P.O. 75 mg Hemodynamics Rest HGB: 12.5 (g/dl) Heart Rate: 61 (bpm) Pressure Samples Time Site Value (mmHg) Purpose Heart Use Rate(bpm) 11:31 LV 123/101,108 Snapshot 113 Snapshots Pre Cath Intra NCS Post Cath Vital Signs Time Heart Resp SPO2 etCO2 NIBP (mmHg) Rhythm Pain Sedation Rate (ipm) (%) (mmHg) Status Level (bpm) 11:23:04 58 16 92 40.6 124/80(105) NSR 0 (11) 10(A) , No pain 11:27:16 58 11 93 15 129/76(98) NSR 0 (11) 10(A) , No pain 11:32:46 77 11 92 39.1 107/75(99) NSR 0 (11) 10(A) , No pain 11:36:57 70 24 91 36.8 114/62(94) NSR 0 (11) 9(A) , No pain 11:41:07 68 31 93 32.3 113/71(96) NSR 0 (11) 9(A) , No pain 11:45:15 68 14 95 33.8 106/65(76) NSR 0 (11) 9(A) , No pain Medications Time Medication Route Dose Verified Delivered Reason Not es Effectiveness by by 11:17:07 0.9% NaCl I.V. 100 Buddy Buddy Per physician ml/hr Rangel Multani RN RN 11:17:20 Oxygen etCO2 2 l/min Buddy Buddy for low 02 sats Nasal Rangel Multani cannula RN RN 11:17:30 Heparin Flush added 2 bags Buddy Buddy used for Bag to Rangel Multani procedure (1000units/500ml field RN RN NS) 11:17:42 Lidocaine 2% added 20ml Buddy Buddy for local to vial Lorigan Rangel anesthetic field RN RN 11:17:54 Radial Cocktail added 1 Buddy Buddy used for (Verapamil to syringe Rangel Multani procedure 2mg/Nitro field RN RN 400mcg/Heparin 1500units) 11:23:56 Versed I.V. 2 mg Buddy Buddy for sedation Rangel Multani RN RN 11:24:03 Fentanyl I.V. 100 mcg Buddy Buddy for sedation Rangel Multani RN RN 11:31:15 Radial Cocktail I.A. 1 Buddy Ariel for (Verapamil syringe Rangel Taujosé MD vasodilation 2mg/Nitro RN 400mcg/Heparin 1500units) 11:40:57 Heparin Bolus I.V. 4000 Buddy Buddy for units Rangel Multani anticoagulation RN RN 11:44:49 Plavix P.O. 75 mg Buddy Buddy for Rangel Multani antiplatelet RN RN therapy Procedure Log Time Note 11:00:27 Erika Hutchinson RN sent for patient. Start room use. 11:03:24 Signed procedure consent form obtained from patient. 11:03:26 Diagnostic Cath status Urgent 11:03:27 Time tracking: Regular hours (M-F 7:00 - 5:00) 11:03:30 Plan of Care:Hemodynamics will remain stable., Cardiac rhythm will remain stable., Comfort level will be maintained., Respiratory function will remain adequate., Patient/ family verbilizes understanding of procedure., Procedure tolerated without complication., Recovers from procedure without complications.. 11:10:21 Patient allergic to No known allergies 11::53 Lab Result : BUN 13 mg/dl 11::53 Lab Result : Hemoglobin 12.5 g/dl 11::53 Lab Result : Creatinine 1 mg/dl 11:10:53 Lab Result : Hematocrit 38 % 11:12:09 Patient received from Med II to CCL 2 Alert and oriented. Tansferred to table in Supine position. 11:12:10 Warm blankets applied, and blanca hugger turned on for patient comfort. 11:12:11 Correct patient and procedure confirmed by team. 11:12:11 ECG and BP/O2 sat monitors applied to patient. 11:17:07 0.9% NaCl 100 ml/hr I.V. was administered by Buddy Multani RN; Per physician; 11:17:20 Oxygen 2 l/min etCO2 Nasal cannula was administered by Buddy Multani RN; for low 02 sats; 11:17:30 Heparin Flush Bag (1000units/500ml NS) 2 bags added to field was administered by Buddy Multani RN; used for procedure; 11:17:42 Lidocaine 2% 20ml vial added to field was administered by Buddy Multani RN; for local anesthetic; 11:17:54 Radial Cocktail (Verapamil 2mg/Nitro 400mcg/Heparin 1500units) 1 syringe added to field was administered by Buddy Multani RN; used for procedure; 11:21:57 Vital chart was started 11:22:02 Baseline sample Acquired. 11:22:04 Rhythm: sinus rhythm 11:22:06 Full Disclosure recording started 11:22:15 H&P Date Dictated: 03/05/2019 Within 30 days and on chart.. 11:22:16 Pre-procedure instructions explained to patient. 11:22:16 Pre-op teaching completed and patient verbalized understanding. 11:22:17 Family in patients room. 11:22:18 Patient NPO since Midnight. 11:22:20 Is the patient allergic to Iodine/contrast media? No. 11:22:21 Is patient on blood thinner?Yes 11:22:31 ACC The patient was administered the following blood thiners within the last 24 hours: ACCPlavix 11:22:32 Patient diabetic? No. 11:22:35 Previous problem with sedation/anesthesia? No ? 11:22:35 Snore? Yes 11:22:36 Sleep apnea? Yes 11:22:38 Deviated septum? No 11:22:39 Opens mouth fully? Yes 11:22:40 Sticks out tongue? Yes 11:22:41 Airway obstruction? No ? 11:22:43 Dentures? No ? 11:22:46 Pre procedure: right dorsailis pedis pulse 1+ Palpable, but thready & weak; easily obliterated 11:22:48 Modified Carlos's test Ulnar < 7 seconds 11:22:52 Patient pain scale 0/10 0. 11:22:59 IV patent on arrival in left forearm with 0.9% NaCl at [facility]. 11:23:01 Lab results completed and on chart. 11:23:04 Right Radial & Right Groin area was prepped with chlora-prep and draped in sterile fashion 11:23:05 Alarms reviewed by R. N. 11:23:05 Sharps counted by scrub and verified by R.N. 11:23:07 Use device set Radial Dx or PCI 11:23:08 ACIST Syringe (37163) opened to sterile field. 11:23:08 Medline Cath Pack ([id number]) opened to sterile field. 11:23:09 Bag Decanter (2002S) opened to sterile field. 11:23:09 ACIST Hand Control (07083) opened to sterile field. 11:23:10 ACIST Manifold (96278) opened to sterile field. 11:23:10 Tegaderm 4 x 4 (1626W) opened to sterile field. 11:23:11 MBrace Wrist Support ([id number]) opened to sterile field. 11:23:12 EMERALD Guide Wire (966-400) opened to sterile field. 11:23:12 SHEATH 6FR Slender (801060) opened to sterile field. 11:23:19 Physician arrived 11::19 --------ALL STOP TIME OUT------ 11:23:20 Final Timeout: patient, procedure, and site verified with staff and physician. All members of the team are in agreement. 11:23:21 Right Radial & Right Groin site verified by team. 11:23:23 Maximum allowable Isovue 300 dose 300ml. Physician notified. (300ml for normal creatinines. For patients with creatinine of 1.7 or higher multiply weight(kg) x 5 divided by creatinine.) 11:23:26 Fire Safety Assessment: A--An alcohol-based skin anteseptic being used preoperatively., C--Open oxygen or nitrous oxide is being used., D--An ESU, laser, or fiber-optic light is being used. 11:23:30 Physical assessment completed. ASA score P 2 - A patient with mild systemic disease as per Ariel Fonseca MD. 11:23:32 Sedation plan: IV Moderate Sedation Medication:Versed, Fentanyl 11::56 Versed 2 mg I.V. was administered by Buddy Multani RN; for sedation; 11::03 Fentanyl 100 mcg I.V. was administered by Buddy Multani RN; for sedation; 11::56 Zero performed for pressure channel P1 11::17 Zero performed for pressure channel P1 11::23 Procedure started. 11::27 Local anesthetic to right radial artery with Lidocaine 2% by Ariel Fonseca MD.INITIAL ACCESS ONLY 11:29:42 A 6 Fr Short sheath was inserted into the Right Radial artery 11:29:49 A DIAGNOSTIC David 110cm 5 Fr catheter (110308) was advanced over the wire and used for Procedure. 11:31:15 Radial Cocktail (Verapamil 2mg/Nitro 400mcg/Heparin 1500units) 1 syringe I.A. was administered by Ariel Fonseca MD; for vasodilation; 11:31:55 LV gram done using RICHARDSON 11:31:57 Injector settings: Ml/sec: 5, Volume: 15, 11:32:05 LV hemodynamics recorded. 11:32:12 LCA angiography performed. 11:33:10 RCA angiography performed. 11:34:10 LV gram done using RICHARDSON 11:34:12 Injector settings: Ml/sec: 5, Volume: 15, 11:34:22 EF : 55 % 11:34:23 Catheter exchanged over wire. 11:35:03 Markesan [place] Eagleye IVUS Catheter (24757Y) opened to sterile field. 11:35:03 CHOICE PT Extra Support 182cm wire ([id number]) opened to sterile field. 11:35:04 INFLATOR Merit BasixCompak (AQ3855) opened to sterile field. 11:35:39 GUIDE 6FR EBU 3.0 SH catheter ([id number]) opened to sterile field. 11:35:50 6 Fr 3.0 sh guide catheter was inserted over the wire 11:35:54 choice pt es wire advanced. 11:36:26 Wire advanced across lesion. 11:39:19 IVUS catheter advanced over wire. 11:39:24 IVUS pass to LMCA lesion performed. 11:39:25 IVUS catheter removed over wire. 11:40:57 Heparin Bolus 4000 units I.V. was administered by Buddy Multani RN; for anticoagulation; 11:41:07 Pre PCI Site: [place] LMCA has 67% stenosis. 11:41:19 Place stent Inflation Number: 1 A DELBERT RX 3.5 x 12 stent ([id number]) was prepped and advanced across the LMCA 66. The stent was deployed at 17 ANNALEE for 0:10 (min:sec) 0. 11:41:21 Stent catheter was removed intact over wire. 11:41:23 Wire removed. 11:41:25 Guide catheter removed. 11:42:14 TR BAND Standard (OAT89RRC) opened to sterile field. 11:42:22 Sheath removed intact; hemostasis achieved with Mechanical Compression to the Right Radial artery. 11:42:23 Procedure ended.(Physican Out) 11:44:49 Plavix 75 mg P.O. was administered by Buddy Multani RN; for antiplatelet therapy; 11:46:03 Post PCI Site: [place] LMCA has 0% stenosis. 11:46:15 Fluoroscopy time 04.90 minutes. 11:46:19 Fluoroscopy dose: 1071 mGy 11:46:19 Flurop Dose total: 1071 11:46:23 Contrast amount:Isovue 300 82ml. 11:46:24 Sharps counted by scrub and verified by R.N. 11:46:28 TR band inflated with 12cc of air. 11:46:29 Insertion/operative site no bleeding no hematoma. 11:46:33 Post right radial artery:stable, soft, clean and dry 11:46:41 Post Procedure Pulses reassessed and unchanged 11:46:43 Post-procedure physical assessment completed. ASA score P 2 - A patient with mild systemic disease as per Ariel Fonseca MD. 11:46:45 Post procedure rhythm: unchanged. 11:46:47 Estimated blood loss: 10 ml 11:46:48 Post procedure instruction explained to patient.Patient verbalizes understanding. 11:46:49 Patient needs reinforcement of post procedure teaching. 11:47:03 Procedure type changed to Cath procedure, Diagnostic procedure, LHC, LHC w/Coronaries, FFR/IVUS, Intra-Coronary IVUS Initial, Sedation Charges, Moderate Sedation up to 15 minutes, PCI procedure, Coronary Stent, Coronary Stent Initial 11:47:26 Procedure and supply charges have been captured, reviewed, submitted and are correct. 11:47:28 Procedure Complication : No complications 11:47:29 Vital chart was stopped 11:47:30 See physician's report for complete and final results. 11:47:31 Report given to Pre/Post Procedure Room. 11:47:33 Patient transfered to Pre/Post Procedure Room with Stretcher. 11:47:35 Procedure ended. 11:47:35 Full Disclosure recording stopped 11:47:38 End room use (Document Last) Intervention Summary Intervention Notes Time ActionType Lesion and Equipment Used Action# Pressure Duration Attributes 11:41:19 Place stent LMCA DELBERT RX 3.5 x 1 17 00:10 12 stent ([id number]) Device Usage Item Name Manufacture Quantity Catalog Number Hospital Part Current M inimal Lot# / Charge Number Stock Stock Serial# Code ACIST Syringe Acist 1 71018 211899 557223 241093 2 0 (46177) Medical Systems Inc Medline Cath Medline 1 [id number] 865321 70156 211223 5 Pack ([id number]) Bag Decanter Microtek 1 2001S 375476 78473 315862 5 (2001S) Medical Inc. ACIST Hand Acist 1 62200 855498 080720 950447 5 Control Medical (81963) Systems Inc ACIST Manifold Acist 1 36684 268944 725700 488211 5 (81840) Medical Systems Inc Tegaderm 4 x 4 3M 1 1626W 079905 985989 381261 5 (1626W) MBrace Wrist Advanced 1 140-0250-00 732309 95889 732269 5 Support Vascular (638476581) Dynamics EMERALD Guide Cardinal 1 502-455 195911 703676 981535 5 Wire (502-455) Health SHEATH 6FR Terumo 1 [id number] 669622 764230 620904 5 Slender (80-1060) DIAGNOSTIC Terumo 1 40-5863 826057 639218 492918 5 David 110cm 5 Fr catheter (070337) Markesan Markesan 1 03988F 768008 620974 697503 8 [place] Eagleye IVUS Catheter (25997X) CHOICE PT [place] 1 [id number] 666178 137734 387308 5 Extra Support Scientific 182cm wire ([id number]) INFLATOR Merit Merit 1 HK3198 852073 471185 179241 1 5 [facility] Hospital[facility] ([id number]) GUIDE 6FR EBU Medtronic 1 [id number] 610307 03040 223111 0 3.0 SH catheter ([id number]) DELBERT RX 3.5 x Medtronic 1 [id number] 058757 4770565 055511 5 [id number] 12 stent ([id number]) TR BAND Terumo 1 [id number] 046207 516870 462160 4 0 Standard ([id number]) Signature Audit [place] Stage Time Signature Unsigned Intra-Procedure 03/06/2019 Jakub Beard 11:48:31 AM RT(R) Signatures Monitor : Jakub Beard RT Signature : Date : Time : [facility] [place] [place] [address]
--- NOTE | ~2019-03-05 | OP ---
PATIENT NAME: KRISTPOHER OGDEN MEDICAL RECORD: [id number] :51 [facility] AD[facility]ION DATE: SURGEON: BALJINDER HUBER MD DATE OF OPERATION: 03/06/2019 PROCEDURES: 1. PTCA stent left main. 2. Intravascular ultrasound of left main. 3. Left heart catheterization. 4. Selective coronary angiography. 5. Left ventriculogram. INDICATION: Unstable angina and coronary artery disease. PROCEDURE IN DETAIL: After informed consent was obtained and after a detailed description of the risks, benefits as well as alternative therapies, the patient elected to proceed with angiogram and angioplasty. The right radial area was prepped and draped in normal sterile fashion. Right radial artery was cannulated via modified Seldinger technique with placement of 6-Albanian sheath. All catheters exchanged through this sheath. FINDINGS: The left ventriculogram was performed in standard 30-degree RICHARDSON view, reveals good cardiac wall motion throughout all segments. Overall ejection fraction estimated 60%. SELECTIVE CORONARY ANGIOGRAPHY: 1. Left main has 67% stenosis confirmed by intravascular ultrasound. 2. Left anterior descending has previously placed stent that is widely patent. There is no disease elsewise throughout the LAD or its branches. 3. The left circumflex has mild irregularities, no flow-limiting stenosis. 4. The right coronary has previously placed stents, these are widely patent with no significant restenosis. No disease elsewise throughout the RCA or its branches. PTCA STENT OF LEFT MAIN: Stent used 3.5 x 12 mm Chuckie. Result was 0% residual stenosis. OVERALL IMPRESSION: Successful percutaneous transluminal angioplasty stent of the left main going from 67% initial stenosis confirmed by intravascular ultrasound to 0% residual. TRANSINT:[id number] Voice Confirmation ID: [id number] DOCUMENT ID: [id number] BALJINDER HUBER MD CC: [id number] DICTATION DATE: 03/06/19 1146 CONTROL ROOM SUPERVISOR: 03/06/19 [address] [place] [address]
[2019-03-05 18:22] LABS: HEMATOCRIT 38.4 % (36.0-48.0); MCHC 33.9 g/dL (31.0-37.0); MCV 85.5 fL (80.0-100.0); MEAN PLATELET VOLUME 10.4 fL (7.4-10.4); PLATELET COUNT 229 10x3/uL (130-400); RBC 4.49 10x6/uL (4.00-5.40); RDW 13.4 % (11.5-14.5); WBC 6.3 10x3/uL (4.8-10.8)
[2019-03-05 18:32] LABS: APTT 23.7 SECONDS (22.8-39.4); INR 0.93 (0.85-1.17)
[2019-03-05 18:39] LABS: ALBUMIN 3.2 g/dL (3.4-5.0); ALKALINE PHOSPHATASE 75 U/L (46-116); ALT (SGPT) 25 U/L (10-68); BILIRUBIN - TOTAL 0.17 mg/dL (0.2-1.3); CALC OSMOLALITY 279 mosm/kg (275-300); CALCIUM 8.9 mg/dL (8.5-10.1); CARBON DIOXIDE 25.6 mmol/L (21.0-32.0); CHLORIDE - SERUM 105 mmol/L (98-107); CREATININE - SERUM 0.8 mg/dL (0.6-1.3); GLUCOSE 102 mg/dL (74-106); POTASSIUM - SERUM 3.8 mmol/L (3.5-5.1); PROTEIN - SERUM 6.4 g/dL (6.4-8.2); SODIUM 141 mmol/L (136-145); UREA NITROGEN 11 mg/dL (7-18); eGFR NON AFRICAN AMERICAN 76 mL/min (90-120)
[2019-03-05 18:42] LABS: BASOPHILS 3 % (0-2); EOSINOPHILS 2 % (0-7); LYMPHOCYTES 56 % (15-50); MONOCYTES 3 % (2-11); NEUTROPHILS 34 % (40-80); PLATELET ESTIMATE NORMAL
[2019-03-05 18:43] LABS: ROULEAUX OCC; TEAR DROP CELLS OCC
[2019-03-05 18:51] LABS: CKMB 0.3 U/L (0.0-3.6); CREATINE KINASE 33 UL (21-215); MAGNESIUM - SERUM 1.9 mg/dL (1.8-2.4); TROPONIN-I < 0.017 ng/mL (0.000-0.060)
--- NOTE | 2019-03-05 19:50 | NUR ---
ADMIT TO ROOM 2111 FROM ER. ALERT/ORIENTED. ACCOMPANIED BY FAMILY X 2. ADMISSION HISTORY AND ASSESSMENT INITIATED. HOME MEDS REVIEWED/UPDATED. TELEMETRY STARTED. PLAN OF CARE INITIATED. CALL LIGHT IN REACH.
[2019-03-05 20:15] VITALS: BP 137/70
[2019-03-05] MEDS ORDERED: IBUPROFEN800 MG PO (20:15)
[2019-03-05 22:58] VITALS: BP 137/70; Ht 167.6 cm; Wt 0.5 kg
[2019-03-06] VITALS: BP 85/55
--- NOTE | 2019-03-06 00:27 | NUR ---
PT RESTING IN BED WITH DAUGHTER AT BEDSIDE. RESPS EVEN/NONLABORED. 59/SB PER TELEMETRY. HAS REPORTED NO CHEST PAIN. MONITOR AND CPOC.
[2019-03-06 01:02] LABS: CKMB 0.5 U/L (0.0-3.6); CREATINE KINASE 30 UL (21-215); TROPONIN-I < 0.017 ng/mL (0.000-0.060)
--- NOTE | 2019-03-06 02:59 | NUR ---
VS PER CHILI POWDER MIXER BP 85/66. PT C/O HEADACHE AND FEELS THAT LEFT ARM IS STILL "TINGLING". REMOVED NITRO PASTE FROM CHEST WALL. WILL MONITOR BP AND PAIN LEVEL AFTER REMOVAL OF NITRO PASTE.
[2019-03-06 07:05] LABS: BASOPHILS 0.6 % (0-2); HEMOGLOBIN 12.5 g/dL (12-16); IMMATURE GRANULOCYTES 0.2 % (0-5); LYMPHOCYTES 29.3 % (15-50); MCH 28.7 pg (26.0-34.0); MCHC 32.9 g/dL (31.0-37.0); MCV 87.4 fL (80.0-100.0); MEAN PLATELET VOLUME 10.4 fL (7.4-10.4); NEUTROPHILS 58.9 % (40-80); PLATELET COUNT 184 10x3/uL (130-400); RBC 4.35 10x6/uL (4.00-5.40); RDW 13.4 % (11.5-14.5); WBC 5.3 10x3/uL (4.8-10.8)
[2019-03-06 07:53] VITALS: BP 115/64
[2019-03-06 07:53] LABS: ALBUMIN 3.2 g/dL (3.4-5.0); ALKALINE PHOSPHATASE 83 U/L (46-116); BILIRUBIN - TOTAL 0.38 mg/dL (0.2-1.3); CALC OSMOLALITY 282 mosm/kg (275-300); CALCIUM 9.7 mg/dL (8.5-10.1); CHLORIDE - SERUM 105 mmol/L (98-107); CKMB 0.2 U/L (0.0-3.6); CREATINE KINASE 31 UL (21-215); GLUCOSE 100 mg/dL (74-106); PROTEIN - SERUM 6.4 g/dL (6.4-8.2); SODIUM 142 mmol/L (136-145); TROPONIN-I < 0.017 ng/mL (0.000-0.060); UREA NITROGEN 13 mg/dL (7-18); eGFR NON AFRICAN AMERICAN 59 mL/min (90-120)
[2019-03-06 07:54] LABS: ALT (SGPT) 35 U/L (10-68); CARBON DIOXIDE 32.9 mmol/L (21.0-32.0)
--- NOTE | 2019-03-06 09:50 | HP ---
PATIENT: KRISTOPHER OGDEN MEDICAL RECORD: [id number] ACCOUNT: [id number] LOCATION:[address] : 51 ADMISSION DATE: 03/05/19 PCP: LUPIS ARREGUIN MD HISTORY AND PHYSICAL EXAMINATION DIAGNOSES: 1. Unstable angina class IV with rest pain. 2. Coronary artery disease. 3. Previous percutaneous transluminal coronary angioplasty stent. 4. Hypertension. 5. Hyperlipidemia. HISTORY OF PRESENT ILLNESS: Mrs. Ogden has had 3 days of increasing chest pain, it has escalated to rest pain. It is just like that of her previous angina. Last cardiac intervention was in September of 2017. Her chest pain now is worse than it was with the procedure in September of 2017. She is having rest pain with radiation to her jaw and her left arm. She came to the Emergency Room last night, was given nitrates as well as beta-blockers. Her heart rate and blood pressure are optimal at this time. She continues to have episodes of the discomfort. PHYSICAL EXAMINATION: GENERAL APPEARANCE: Well-nourished, well-developed, appears stated age. Level of distress, comfortable. PSYCHIATRIC: Mental status, alert, normal affect. Orientation, oriented to time, place and person. EYES: Lids and conjunctiva, noninjected. No discharge, no pallor. ENT: Lips, teeth, gums, normal dentition. Oropharynx, no cyanosis, no pallor. NECK: Carotid arteries, bilateral normal upstroke, no bruits, no thrills. JUGULAR VEINS: No jugular venous pressure or distention. CERVICAL LYMPH NODES: Nontender, nonenlarged. THYROID: Not enlarged. Nontender. No nodules. LUNGS: Respiratory effort, unlabored. CHEST: Normal curvature. No thoracic deformity. No chest wall tenderness. Percussion, resonant. Auscultation, clear. No wheezes, no rales, no rhonchi. CARDIOVASCULAR: Precordial exam, nondisplaced. No heaves or pericardial thrills. Rate and rhythm, regular. Heart sounds, normal S1, normal S2. No S3, no gallop, no rub. Systolic murmur, not heard. Diastolic murmur, not heard. EXTREMITIES: No cyanosis, no edema. Peripheral pulses, full and equal in all extremities, except as noted. No bruits appreciated. ABDOMEN: Soft, nondistended. Normal aorta. No bruit. Nontender. No masses. Liver, nontender, no hepatomegaly. Spleen, nontender, no splenomegaly. MUSCULOSKELETAL: No joint tenderness. No joint swelling. No erythema. NEUROLOGICAL: Normal gait, normal strength, normal tone. SKIN: Warm and dry. OVERALL IMPRESSION: Maximal medical therapy with the systolic blood pressure in the 80s to 90s and heart rates in the 50s. No other room for continued medical management with continued anginal chest discomfort just like that of her previous angina, even worse. We will proceed with coronary angiography as there is a high likelihood if she has hemodynamically significant coronary artery disease and she is intermittently high risk for an event at this time. TRANSINT:[id number] Voice Confirmation ID: [id number] DOCUMENT ID: [id number] HISTORY AND PHYSICAL [id number] KRISTOPHER OGDEN, BALJINDER VELASQUEZ at 0950 CC: [id number] DICTATION DATE: 03/06/19 0754 DRAFTER PATENT: 03/06/19 [address] [place] [address]
--- NOTE | 2019-03-06 10:59 | NUR ---
ALERT AND ORIENTED X4. SITTING UP IN BED. CONSENTS FOR SEGMENTAL PAVING SUPERVISOR SIGNED ON CHART. LT FA IV INFILTRATED. DC LT FA IV TIP INTACT. UNSUCCESSFUL IV RESITE X1 ATTEMPT. NELSON RANDALL AT BEDSIDE TO RESITE IV. PRE-OP FOR SEGMENTAL PAVING SUPERVISOR COMPLETE. CONTINUE PLAN OF CARE AND SAFETY PRECAUTIONS.
--- NOTE | 2019-03-06 11:55 | NUR ---
PT ARRIVED BY STRETCHER. PLACED ON MONITORS. ASSESSMENT COMPLETED. CALL LIGHT WITHIN REACH.
[2019-03-06] MEDS ORDERED: PLAVIX75 MG PO (12:03)
--- NOTE | 2019-03-06 12:11 | NUR ---
PT RESTING COMFORTABLY. VSS. RIGHT WRIST TR BAND IN PLACE. NO BLEEDING/HEMATOMA NOTED.
--- NOTE | 2019-03-06 12:41 | NUR ---
PT RESTING COMFORTABLY AT THIS TIME. VSS. RIGHT RADIAL TR BAND IN PLACE. NO BLEEDING/HEMATOMA NOTED. CALL LIGHT WITHIN REACH. VSS.
--- NOTE | 2019-03-06 13:10 | NUR ---
PT'S FAMILY ARRIVED AT BEDSIDE. THEY STATED DR. HUBER SPOKE WITH THEM AND UPDATED THEM. RIGHT WRIST TR BAND IN PLACE. NO BLEEDING/HEMATOMA NOTED. VSS. CALL LIGHT WITHIN REACH. PT RESTING COMFORTABLY.
--- NOTE | 2019-03-06 13:40 | NUR ---
PT MORE AWAKE AND ALERT. HOB INC TO 30 DEGREES. TOLERATED WELL. DENIES PAIN OR NAUSEA. SET UP WITH COFFEE AND SANDWICH TRAY PER REQUEST. NO OTHER NEEDS AT THIS TIME. VSS. RIGHT RADIAL TR BAND IN PLACE. NO BLEEDING/HEMATOMA NOTED.
--- NOTE | 2019-03-06 14:21 | NUR ---
PT ON BEDPAN. VOIDED APPROX 150CC OF CLEAR YELLOW URINE. REGINA-CARE GIVEN. REPOSITIONED FOR COMFORT. NO OTHER NEEDS AT THIS TIME. RIGHT RADIAL TR BAND IN PLACE. NO BLEEDING/HEMATOMA NOTED. VSS. FAMILY AT BEDSIDE.
--- NOTE | 2019-03-06 14:45 | NUR ---
3cc OF AIR REMOVED FROM TR BAND. NO BLEEDING/HEMATOMA NOTED. VSS. NO OTHER NEEDS AT THIS TIME.
--- NOTE | 2019-03-06 14:59 | NUR ---
PLAVIX RX CALLED INTO PHARMACY PER PT REQUEST. L[facility]NA ON CENTRAL. SPOKE WITH JOSE. 3cc OF AIR REMOVED FROM TR BAND. PT TOLERATED WELL. NO BLEEDING/HEMATOMA NOTED.
--- NOTE | 2019-03-06 15:15 | NUR ---
3cc OF AIR REMOVED FROM TR BAND. PT TOLERATED WELL. NO BLEEDING/HEMATOMA NOTED.
--- NOTE | 2019-03-06 15:20 | NUR ---
LEFT FA PIV D/C'D WITH CATH TIP INTACT. PT TOLERATED WELL. DISCUSSED DISCHARGE INSTRUCTIONS WITH PT AND PT'S FAMILY. THEY VOICED UNDERSTANDING. PT INSTRUCTED TO GET UP AND DRESSED. DAUGHTER AT BEDSIDE TO ASSIST. CALL LIGHT WITHIN REACH.
--- NOTE | 2019-03-06 15:22 | NUR ---
TR BAND REMOVED. NO BLEEDING/HEMATOMA NOTED. DRESSING APPLIED. RIGHT WRIST BRACE IN PLACE. PT INSTRUCTED TO KEEP ON FOR 2 HOURS AFTER ARRIVAL HOME. SHE VOICED UNDERSTANDING.
--- NOTE | 2019-03-06 15:42 | NUR ---
RIGHT WRIST DRESSING C/D/I. NO S/S OF HEMATOMA NOTED. CAP REFILL < 3 SECS. PT TAKEN OUT TO VEHICLE BY WHEELCHAIR. NO S/S OF DISTRESS NOTED.
--- NOTE | 2019-03-06 15:43 | NUR ---
ALL BELONGINGS AND PAPERWORK IN HAND.
[2019-03-06] MEDS ORDERED: PHENERGAN25 M1 PO (23:09)
== END 2019-03-06 15:42 | disposition home or self-care (01) ==
LOC: D.ER 17:49 → D.OPS 17:49 → D.M2 17:49 → EDSTATUS 19:04 → D.M2 19:29 → D.CLR 03-06 11:57 → D.OPS 03-06 15:42
PROVIDERS: Family Medicine; ATTEND Internal Medicine Interventional Cardiology
DX: R07.9 Chest pain, unspecified (principal)

== ENCOUNTER 2019-03-06 21:33 | Emergency (ER) | payer MEDICARE ==
[~2019-03-06] VITALS: Ht 167.6 cm; Wt 90.9 kg
[~2019-03-06 21:33] MED LIST changes: +IBUPROFEN800 MG PO
[2019-03-06 21:38] VITALS: Ht 167.6 cm; Wt 90.9 kg
[2019-03-06 22:32] LABS: BASOPHILS 0.6 % (0-2); EOSINOPHILS 2.6 % (0-7); HEMATOCRIT 40.2 % (36.0-48.0); HEMOGLOBIN 13.3 g/dL (12-16); LYMPHOCYTES 36.7 % (15-50); MCH 28.9 pg (26.0-34.0); MCHC 33.1 g/dL (31.0-37.0); MCV 87.2 fL (80.0-100.0); MEAN PLATELET VOLUME 10.4 fL (7.4-10.4); MONOCYTES 9.2 % (2-11); NEUTROPHILS 50.9 % (40-80); PLATELET COUNT 202 10x3/uL (130-400); RBC 4.61 10x6/uL (4.00-5.40); RDW 13.3 % (11.5-14.5); WBC 5.3 10x3/uL (4.8-10.8)
[2019-03-06 22:42] LABS: APTT 23.9 SECONDS (22.8-39.4); INR 0.89 (0.85-1.17); PROTIME 11.6 SECONDS (11.6-15.0)
[2019-03-06 22:45] LABS: CALC OSMOLALITY 277 mosm/kg (275-300); CALCIUM 8.6 mg/dL (8.5-10.1); CARBON DIOXIDE 33.2 mmol/L (21.0-32.0); CHLORIDE - SERUM 104 mmol/L (98-107); CREATININE - SERUM 0.8 mg/dL (0.6-1.3); GLUCOSE 95 mg/dL (74-106); POTASSIUM - SERUM 4.4 mmol/L (3.5-5.1); SODIUM 140 mmol/L (136-145); UREA NITROGEN 11 mg/dL (7-18); eGFR NON AFRICAN AMERICAN 76 mL/min (90-120)
[2019-03-06] MEDS ORDERED: PHENERGAN25 M1 PO (23:09)
[2019-03-06 23:26] VITALS: BP 144/72
== END 2019-03-07 00:11 | disposition home or self-care (01) ==
LOC: D.ER 21:33
PROVIDERS: Family Medicine
DX: T39.315A Adverse effect of propionic acid derivatives, initial encounter (principal); T45.525A Adverse effect of antithrombotic drugs, initial encounter; Y92.019 Unspecified place in single-family (private) house as the place of occurrence of the external cause

== ENCOUNTER 2019-04-26 15:46 | Observation (INO) | payer MEDICARE ==
[~2019-04-26] VITALS: Ht 167.6 cm; Wt 104.3 kg
--- NOTE | ~2019-04-26 | HEMODYNAMI ---
PATIENT:KRISTOPHER OGDEN MEDICAL RECORD: [id number] : 51 LOCATION:[address]# [id number] ADMISSION DATE: 04/26/19 Generatedon:04/27/201913:00 Patient name: KRISTOPHER OGDEN Patient #: [id number] SSN: [id number] : 1955 Date of study: 04/27/2019 Page: Of Hemodynamic Procedure Report Patient Data Patient Demographics Procedure consent was obtained First Name: KRISTOPHER Gender: Female Last Name: ALIN : 1955 Middle Initial: J Age: 63 year(s) Patient #: [id number] Race: SSN: [id number] Additional ID: [id number] Contact details Address: [address] [place] [address] State: [place] City: [facility] Zip code: [address] Past Medical History Allergies: No known allergies Admission Admission Data Admission Date: 04/26/2019 Admission Time: 19:40 Room #: [facility] Insurance Payor: Medicare [facility] #: [id number] Height (in.): 167 BSA: 4.16 (m2) Height (cm.): 424.18 BMI: 5.78 (kg/m2) Weight (lbs.): 229.28 Weight (kg.): 104 Procedure Procedure Types Cath Procedure Diagnostic Procedure LHC LHC w/Coronaries PCI Procedure Coronary Stent Coronary Stent Initial Procedure Description Procedure Date Procedure Date: 04/27/2019 Procedure Start Time: 12:42 Procedure End Time: 12:55 Procedure Staff Name Function Ariel Fonseca MD Performing Physician Monika Doll RT Monitor Kiara Gasca RT Scrub Erika Hutchinson RN Nurse Elton Fletcher RT Scrub Procedure Data Cath Procedure Fluoroscopy Diagnostic fluoroscopy Total fluoroscopy Time: 2.9 time: 2.9 min min Diagnostic fluoroscopy Total fluoroscopy dose: 589 dose: 589 mGy mGy Contrast Material Contrast Material Type Amount (ml) Isovue 300 87 Entry Location Entry Primary Successful Side Size Upsize Upsize Entry Closure Mendoza ccessful Closure Location (Fr) 1 (Fr) 2 (Fr) Remarks Device Remarks Radial Right 6 Fr Mechanical artery Short Compression Estimated blood loss: 10 ml Diagnostic catheters Device Type Used For End Catheter Placement DIAGNOSTIC [place] 110cm 5 Procedure Fr catheter ([id number]) Procedure Complications No complications Procedure Medications Medication Administration Route Dosage Oxygen etCO2 Nasal cannula 2 l/min Lidocaine 2% added to field 20 Heparin Flush Bag added to field 2 bags (1000units/500ml NS) 0.9% NaCl I.V. 100 ml/hr Radial Cocktail I.A. 1 syringe (Verapamil 2mg/Nitro 400mcg/Heparin 1500units) Versed I.V. 2 mg Fentanyl I.V. 100 mcg Versed I.V. 0.5 mg Fentanyl I.V. 25 mcg Heparin Bolus I.V. 4000 units Effient P.O. 10 mg Hemodynamics Rest BSA: 4.16 (m2) O2 Consumption: Estimated: 400.17 (ml/min) O2 Consumption indexed : Estimated:96.19 (ml/min/m) Heart Rate: 77 (bpm) Snapshots Pre Cath Intra NCS Post Cath Vital Signs Time Heart Resp SPO2 etCO2 NIBP (mmHg) Rhythm Pain Sedation Rate (ipm) (%) (mmHg) Status Level (bpm) 12:31:30 72 17 98 14 158/94(131) NSR 0 (11) 10(A) , No pain 12:36:00 66 14 98 2.2 146/85(121) NSR 0 (11) 10(A) , No pain 12:40:31 67 12 97 14 148/82(107) NSR 0 (11) 10(A) , No pain 12:45:05 77 13 97 8.2 110/70(92) NSR 0 (11) 9(A) , No pain 12:49:19 80 14 94 10.4 115/83(97) NSR 0 (11) 9(A) , No pain 12:53:35 80 13 93 11.9 130/83(98) NSR 0 (11) 9(A) , No pain 12:59:09 79 14 95 20.9 118/76(102) NSR 0 (11) 10(A) , No pain Medications Time Medication Route Dose Verified Delivered Reason Not es Effectiveness by by 12:37:46 Oxygen etCO2 2 l/min Ariel Jaems used for Nasal Marian Hutchinson RN procedure cannula 12:37:52 Lidocaine 2% added 20ml Ariel George for local to vial Marian Fonseca MD anesthetic field 12:38:01 Heparin Flush added 2 bags Ariel George used for Bag to Marian Fonseca MD procedure (1000units/500ml field NS) 12:38:13 0.9% NaCl I.V. 100 Ariel James Per physician ml/hr Marian Hutchinson RN 12:38:19 Radial Cocktail I.A. 1 Ariel George for (Verapamil syringe Marian Fonseca MD vasodilation 2mg/Nitro 400mcg/Heparin 1500units) 12:41:57 Versed I.V. 2 mg Ariel Obrienie for sedation Marian Hutchinson RN 12:42:02 Fentanyl I.V. 100 mcg Ariel James for sedation Marian Hutchinson RN 12:44:55 Versed I.V. 0.5 mg Ariel James for sedation Marian Hutchinson RN 12:45:00 Fentanyl I.V. 25 mcg Ariel James for sedation Marian Hutchinson RN 12:48:41 Heparin Bolus I.V. 4000 Ariel James for rupali ified units Marian Hutchinson RN anticoagulation with dr fonseca 12:55:40 Effient P.O. 10 mg Ariel James for Marian Hutchinson RN antiplatelet therapy Procedure Log Time Note 12:11:10 Signed procedure consent form obtained from patient. 12:11:13 Procedure Status Urgent Heart Cath (IP). 12:11:14 Time tracking: Regular hours (M-F 7:00 - 5:00) 12:11:19 Plan of Care:Hemodynamics will remain stable., Cardiac rhythm will remain stable., Comfort level will be maintained., Respiratory function will remain adequate., Patient/ family verbilizes understanding of procedure., Procedure tolerated without complication., Recovers from procedure without complications.. 12:14:06 Elton TIDWELL(R) sent for patient. Start room use. 12:23:40 Patient received from Med II to CCL 1 Alert and oriented. Tansferred to table in Supine position. 12:23:41 Warm blankets applied, and blanca hugger turned on for patient comfort. 12:23:42 Correct patient and procedure confirmed by team. 12:23:42 ECG and BP/O2 sat monitors applied to patient. 12:29:57 Rhythm: sinus rhythm 12::59 Full Disclosure recording started 12:30:07 Vital chart was started 12:30:08 Baseline sample Acquired. 12:30:14 H&P Date Dictated: 04/27/2019 Within 30 days and on chart.. 12:30:15 Pre-procedure instructions explained to patient. 12:30:16 Pre-op teaching completed and patient verbalized understanding. 12:30:18 Family in waiting room. 12:30:20 Patient NPO since Midnight. 12:30:22 Is the patient allergic to Iodine/contrast media? No. 12:30:31 Is patient on blood thinner?Yes 12:30:35 ACC The patient was administered the following blood thiners within the last 24 hours: ACCPlavix 12:30:37 Patient diabetic? No. 12:30:40 Previous problem with sedation/anesthesia? No ? 12:30:41 Snore? Yes 12:31:20 Sleep apnea? Yes 12:31:44 Deviated septum? No 12:31:45 Opens mouth fully? Yes 12:31:49 Sticks out tongue? Yes 12:31:52 Airway obstruction? No ? 12:31:55 Dentures? No ? 12:31:58 Pre procedure: right dorsailis pedis pulse 1+ Palpable, but thready & weak; easily obliterated 12:32:00 Modified Carlos's test Ulnar < 7 seconds 12:32:06 Patient pain scale 3/10 Physician notified.. 12:32:47 IV patent on arrival in left hand with 0.9% NaCl at O. 12:32:59 Lab results completed and on chart. 12:33:08 Right Radial & Right Groin area was prepped with chlora-prep and draped in sterile fashion 12:33:09 Alarms reviewed by R. N. 12:33:09 Sharps counted by scrub and verified by R.N. 12:36:35 Patient Weight : 229.28 lbs 12:36:45 Patient Height : 167 inches 12:37:46 Oxygen 2 l/min etCO2 Nasal cannula was administered by Erika Hutchinson RN; used for procedure; 12:37:52 Lidocaine 2% 20ml vial added to field was administered by Ariel Fonseca MD; for local anesthetic; 12:38:01 Heparin Flush Bag (1000units/500ml NS) 2 bags added to field was administered by Ariel Fonseca MD; used for procedure; 12:38:13 0.9% NaCl 100 ml/hr I.V. was administered by Erika Hutchinson RN; Per physician; 12:38:19 Radial Cocktail (Verapamil 2mg/Nitro 400mcg/Heparin 1500units) 1 syringe I.A. was administered by Ariel Fonseca MD; for vasodilation; 12:38:24 Insurance Payor : Medicare 12:39:06 Use device set Radial Dx or PCI 12:39:09 ACIST Syringe (52261) opened to sterile field. 12:39:09 Bag Decanter () opened to sterile field. 12:39:10 ACIST Hand Control (19870) opened to sterile field. 12:39:10 ACIST Manifold (26637) opened to sterile field. 12:39:11 Tegaderm 4 x 4 (1626W) opened to sterile field. 12:39:12 Medline Cath Pack ([id number]) opened to sterile field. 12:39:13 MBrace Wrist Support ([id number]) opened to sterile field. 12:39:15 EMERALD Guide Wire (193-375) opened to sterile field. 12:39:15 SHEATH 6FR RAIN (8758853) opened to sterile field. 12:40:06 Zero performed for pressure channel P1 12:41:02 --------ALL STOP TIME OUT------ 12:41:02 Final Timeout: patient, procedure, and site verified with staff and physician. All members of the team are in agreement. 12:41:04 Right Radial & Right Groin site verified by team. 12:41:07 Fire Safety Assessment: A--An alcohol-based skin anteseptic being used preoperatively., C--Open oxygen or nitrous oxide is being used., D--An ESU, laser, or fiber-optic light is being used. 12:41:09 Physical assessment completed. ASA score P 2 - A patient with mild systemic disease as per Ariel Fonseca MD. 12:41:22 2) 60-89 Mildly reduced kidney function, and other findings (as for stage 1) point to kidney disease. 12:41:32 Sedation plan: IV Moderate Sedation Medication:Versed, Fentanyl 12:41:36 Procedure started. 12:41:57 Versed 2 mg I.V. was administered by Erika Hutchinson RN; for sedation; 12:42:02 Fentanyl 100 mcg I.V. was administered by Erika Hutchinson RN; for sedation; 12:42:25 Local anesthetic to right radial artery with Lidocaine 2% by Ariel Fonseca MD.INITIAL ACCESS ONLY 12:43:13 A 6 Fr Short sheath was inserted into the Right Radial artery 12:43:49 A DIAGNOSTIC [place] 110cm 5 Fr catheter ([id number]) was advanced over the wire and used for Procedure. 12:44:22 LV gram done using RICHARDSON 12:44:25 Injector settings: Ml/sec: 7, Volume: 15, 12:44:51 EF : 60 % 12:44:55 Versed 0.5 mg I.V. was administered by Erika Hutchinson RN; for sedation; 12:45:00 Fentanyl 25 mcg I.V. was administered by Erika Hutchinson RN; for sedation; 12:45:37 LCA angiography performed. 12:46:06 CHOICE PT Extra Support 182cm wire ([id number]) opened to sterile field. 12:46:08 INFLATOR Merit BasixCompak (UD9952) opened to sterile field. 12:46:25 RCA angiography performed. 12:46:26 Catheter exchanged over wire. 12:46:40 GUIDE 6FR XBLAD 3.5 catheter ([id number]) opened to sterile field. 12:46:59 6 Fr XBLAD 3.5 guide catheter was inserted over the wire 12:47:56 CHOICE ES 182 wire advanced. 12:48:41 Heparin Bolus 4000 units I.V. was administered by Erika Hutchinson RN; for anticoagulation; verified with dr fonseca 12:49:25 Wire advanced across lesion. 12:49:46 Inflate balloon Inflation number: 1 A EUPHORA 2.0 x 15 Balloon ([id number]) was prepped and advanced across the 1st Diag , then inflated to 10 ANNALEE for 0:00 (min:sec) . 12:50:05 Balloon removed over the wire. 12:51:24 Place stent Inflation Number: 2 A DELBERT RX 2.0 x 8 stent ([id number]) was prepped and advanced across the 1st Diag . The stent was deployed at 11 ANNALEE for 0:00 (min:sec) . 12::54 Stent catheter was removed intact over wire. 12::55 Wire removed. 12::55 Guide catheter removed. 12:52:02 Procedure ended.(Physican Out) 12:52:21 ZEPHYR REGULAR TR BAND (620114) opened to sterile field. 12:52:38 Sheath removed intact; hemostasis achieved with Mechanical Compression to the Right Radial artery. 12::43 Fluoroscopy time 02.90 minutes. 12::48 Flurop Dose total: 589 12::48 Fluoroscopy dose: 589 mGy 12:: Dose Area Product 50433 mGy/cm. 12::58 Contrast amount:Isovue 300 87ml. 12:53:01 Maximum allowable dose exceeded? No. 12:53:02 Sharps counted by scrub and verified by R.N. 12:53:25 TR band inflated with 9cc of air. 12:53:30 Post-procedure physical assessment completed. ASA score P 2 - A patient with mild systemic disease as per Ariel Fonseca MD. 12:53:33 Post procedure rhythm: sinus rhythm 12:53:37 Estimated blood loss: 10 ml 12:53:38 Post procedure instruction explained to patient.Patient verbalizes understanding. 12:53:39 Patient needs reinforcement of post procedure teaching. 12:54:46 Procedure type changed to Cath procedure, Diagnostic procedure, LHC, LHC w/Coronaries, PCI procedure, Coronary Stent, Coronary Stent Initial 12:55:07 Procedure and supply charges have been captured, reviewed, submitted and are correct. 12:55:08 Procedure Complication : No complications 12:55:10 Vital chart was stopped 12:55:11 See physician's report for complete and final results. 12:55:12 Report given to Med II. 12:55:20 Patient transfered to [facility] II with Bed. 12:55:22 Procedure ended. 12:55:22 Full Disclosure recording stopped 12:55:26 End room use (Document Last) 12:55:40 Effient 10 mg P.O. was administered by Erika Hutchinson RN; for antiplatelet therapy; 12:56:51 Pt has been on plavix and feels she is allergic. pt has itching skin and reddness noted. Dr Fonseca changed medication to Effient. Intervention Summary Intervention Notes Time ActionType Lesion and Equipment Used Action# Pressure Duration Attributes 12:49:46 Inflate 1st Diag EUPHORA 2.0 x 1 10 00:00 balloon 15 Balloon ([id number]) 12:51:24 Place stent 1st Diag DELBERT RX 2.0 x 2 11 00:00 8 stent ([id number]) Device Usage Item Name Manufacture Quantity Catalog Number Hospital Part Current M inimal Lot# / Charge Number Stock Stock Serial# Code ACIST Syringe Acist 1 54952 625660 888432 249418 2 0 (50259) Medical Systems Inc Bag Decanter Microtek 1 2001S 712346 97561 929138 5 (2001S) Medical Inc. ACIST Hand Acist 1 61005 150756 129887 987572 5 Control Medical (61755) Systems Inc ACIST Manifold Acist 1 17522 753840 296580 593019 5 (12446) Medical Systems Inc Tegaderm 4 x 4 3M 1 1626W 027906 648865 038948 5 (1626W) Medline Cath Medline 1 [id number] 199136 61631 490172 5 Pack ([id number]) MBrace Wrist Advanced 1 140-0250-00 335143 40015 657130 5 Support Vascular (072169799) Dynamics EMERALD Guide Cardinal 1 502-455 024591 634342 868084 5 Wire (502-455) Health SHEATH 6FR Cardinal 1 2839665 565995 5926584 352750 5 RAIN (3204929) Health DIAGNOSTIC Terumo 1 40-5013 632954 987173 256046 5 [place] 110cm 5 Fr catheter (425090) CHOICE PT [place] 1 [id number] 255460 068007 845856 5 Extra Support Scientific 182cm wire ([id number]) INFLATOR Merit Merit 1 WE4066 403736 775532 101300 1 5 quitchen Medical (JR7246) GUIDE 6FR Cardinal 1 [id number] 047139 693356 728638 1 0 XBLAD 3.5 Health catheter (91353178) EUPHORA 2.0 x Medtronic 1 [id number] 961596 460284 494431 5 [id number] 15 Balloon ([id number]) DELBERT RX 2.0 x Medtronic 1 [id number] 326864 8976947 509313 5 [id number] 8 stent ([id number]) ZEPHYR REGULAR Cardinal 1 233445 386138 3187209 493880 5 TR BAND [facility] (808232) Signature Audit [place] Stage Time Signature Unsigned Intra-Procedure 04/27/2019 Monika Doll 1:00:13 PM RT(R) Signatures Performing Physician : Signature : Ariel Fonseca MD Date : Time : Monitor : Monika Doll Signature : RT Date : Time : Nurse : Erika Hutchinson RN Signature : Date : Time : [address] [address]
[~2019-04-26 15:46] MED LIST changes: +PHENERGAN25 M1 PO
[2019-04-26 16:07] VITALS: BP 152/85
[2019-04-26 16:25] LABS: BASOPHILS 0.4 % (0-2); HEMATOCRIT 37.8 % (36.0-48.0); HEMOGLOBIN 13.1 g/dL (12-16); LYMPHOCYTES 45.4 % (15-50); MCH 28.9 pg (26.0-34.0); MCHC 34.7 g/dL (31.0-37.0); MCV 83.3 fL (80.0-100.0); MEAN PLATELET VOLUME 10.2 fL (7.4-10.4); MONOCYTES 8.4 % (2-11); NEUTROPHILS 44.8 % (40-80); PLATELET COUNT 219 10x3/uL (130-400); RBC 4.54 10x6/uL (4.00-5.40); RDW 13.5 % (11.5-14.5)
[2019-04-26 16:42] LABS: APTT 24.7 SECONDS (22.8-39.4); INR 0.99 (0.85-1.17); PROTIME 12.6 SECONDS (11.6-15.0)
[2019-04-26 16:47] LABS: ALBUMIN 3.3 g/dL (3.4-5.0); ALKALINE PHOSPHATASE 87 U/L (46-116); ALT (SGPT) 38 U/L (10-68); BILIRUBIN - TOTAL 0.38 mg/dL (0.2-1.3); CALC OSMOLALITY 274 mosm/kg (275-300); CALCIUM 9.1 mg/dL (8.5-10.1); CARBON DIOXIDE 24.1 mmol/L (21.0-32.0); CHLORIDE - SERUM 104 mmol/L (98-107); CREATININE - SERUM 0.8 mg/dL (0.6-1.3); GLUCOSE 99 mg/dL (74-106); POTASSIUM - SERUM 3.7 mmol/L (3.5-5.1); PROTEIN - SERUM 6.9 g/dL (6.4-8.2); SODIUM 138 mmol/L (136-145); UREA NITROGEN 11 mg/dL (7-18); eGFR NON AFRICAN AMERICAN 76 mL/min (90-120)
[2019-04-26 17:03] LABS: CKMB 0.6 U/L (0.0-3.6); CREATINE KINASE 41 UL (21-215); MAGNESIUM - SERUM 1.8 mg/dL (1.8-2.4)
[2019-04-26 17:07] LABS: TROPONIN-I < 0.017 ng/mL (0.000-0.060)
[2019-04-26 18:05] LABS: APPEARANCE CLEAR (CLEAR); COLOR YELLOW (YELLOW); GLUCOSE NEGATIVE (NEGATIVE); NITRITE NEGATIVE (NEGATIVE); PROTEIN NEGATIVE (NEGATIVE)
[2019-04-26 18:08] LABS: BILIRUBIN NEGATIVE (NEGATIVE); KETONE NEGATIVE (NEGATIVE); UROBILINOGEN NORMAL (NORMAL)
[2019-04-26 18:09] LABS: BACTERIA MODERATE /hpf (NONE SEEN); EPITHELIAL CELLS 0-5 /hpf (0-5); RED CELLS - URINE OCC /hpf (0-5); WHITE CELLS - URINE OCC /hpf (0-5)
[2019-04-26 21:01] LABS: CKMB 0.3 U/L (0.0-3.6); CREATINE KINASE 33 UL (21-215)
[2019-04-26 21:03] LABS: TROPONIN-I < 0.017 ng/mL (0.000-0.060)
[2019-04-26] MEDS ORDERED: BENADRYL25 MG PO (21:08)
[2019-04-27 00:47] VITALS: Ht 167.6 cm; Wt 104.3 kg
[2019-04-27 03:04] LABS: CKMB 0.5 U/L (0.0-3.6); CREATINE KINASE 35 UL (21-215); TROPONIN-I < 0.017 ng/mL (0.000-0.060)
[2019-04-27 03:57] VITALS: BP 114/73
[2019-04-27 08:30] LABS: CKMB 0.5 U/L (0.0-3.6); CREATINE KINASE 35 UL (21-215); TROPONIN-I < 0.017 ng/mL (0.000-0.060)
--- NOTE | 2019-04-27 11:12 | HP ---
PATIENT: KRISTOPHER OGDEN MEDICAL RECORD: [id number] ACCOUNT: [id number] LOCATION:[address] : 51 ADMISSION DATE: 04/26/19 PCP: LUPIS ARREGUIN MD HISTORY AND PHYSICAL EXAMINATION DATE OF ADMISSION: 04/26/2019 CHIEF COMPLAINT: Chest pain. HISTORY OF PRESENT ILLNESS: This is a 63-year-old female with a known history of coronary artery disease. She and her daughter were shopping in [place] when she had sudden onset of lightheadedness and tightness in her chest that went to her left arm, her left arm felt heavy. She felt like she was going to pass out, but made it to a bench where she sat down, she took at nitro and that did give relief. EMS was called and brought her to the Emergency Room here at [place] and she is now admitted for further evaluation of her chest pain. PAST MEDICAL HISTORY: She has a history of coronary artery disease, followed by Dr. Fonseca. She got stents in her arteries in September 2017 and February 2019. She has a history of arthritis, urinary stress incontinence, hyperlipidemia, hiatal hernia, reflux, depression and sleep apnea. PAST SURGICAL HISTORY: Right bunionectomy, coronary stents as above, bladder suspension, hysterectomy, lumbar discectomy, cholecystectomy, cataract surgery. ALLERGIES: None known. HOME MEDICATIONS: Include Plavix 75 mg once a day, Benadryl 25 mg daily with Plavix, atorvastatin 80 mg a day, aspirin 81 mg a day, Lexapro 20 mg a day, and either Protonix or Nexium twice a day. SOCIAL HISTORY: She is retired. She is . FAMILY HISTORY: Father had cancer. Mother had heart disease. HABITS: Former smoker, no alcohol or drugs. REVIEW OF SYSTEMS: GENERAL: No major weight changes. HEENT: Unremarkable. CARDIAC: See above. RESPIRATORY: No history of COPD or asthma. GASTROINTESTINAL: She has had hiatal hernia, reflux. GENITOURINARY: Urinary stress incontinence and has had bladder surgery. MUSCULOSKELETAL: Arthritic aches and pains. NEUROLOGIC: No migraines or seizures. PSYCHIATRIC: She has depression. PHYSICAL EXAMINATION: VITAL SIGNS: Temperature 99.1, pulse 73, respirations 13, blood pressure 152/85, O2 sat 97%. GENERAL: She is awake, alert, no acute distress. She is in the emergency department. SKIN: Warm and dry. HEENT: Grossly within normal limits. HISTORY AND PHYSICAL [id number] KRISTOPHER OGDEN NECK: Supple. No JVD or bruit. HEART: Regular rate and rhythm without murmur. LUNGS: Clear. ABDOMEN: Soft, flat, nontender. EXTREMITIES: She has some pain and swelling in the left lower extremity just below the knee compared to the right. LABORATORY DATA: Troponin is less than 0.017. Urinalysis is unremarkable except 1+ leukocyte esterase, moderate bacteria. CBC showed a white count of 5000, hemoglobin 13.1, hematocrit 37.8, platelets are normal. INR 0.99. D-dimer is elevated at 1.02. Basic metabolic panel is normal. Liver functions are all normal. Albumin barely low at 3.3. CTA of the chest with PE protocol was done due to the elevated D-dimer and there is no evidence of pulmonary emboli. There is no acute airspace disease. She has a moderate sliding hiatal hernia. She has had her gallbladder removed and coronary atherosclerosis is noted. ASSESSMENT: Chest pain in a patient with known coronary artery disease. Last stent was 2 months ago. Her pain was relieved with nitroglycerin. PLAN: Serial cardiac enzymes. Referral to cardiology; and with her pain and swelling in left lower extremity, we will get a venous Doppler ultrasound of her left lower extremity. Other tests or procedures as warranted. TRANSINT:[id number] Voice Confirmation ID: [id number] DOCUMENT ID: [id number] LUPIS ARREGUIN MD at 1112 CC: [id number] DICTATION DATE: 04/27/192052 CELLAR HAND: 04/27/19 0021 ADM IN [facility] [address] [place] [address]
[2019-04-27 11:43] LABS: PLT FUNCT.(P2Y12) PLAVIX 152 PRU (194-418)
[2019-04-27] MEDS ORDERED: EFFIENT10 MG PO (15:11)
--- NOTE | 2019-05-02 11:09 | OP ---
PATIENT NAME: KRISTOPHER OGDEN MEDICAL RECORD: [id number] :51 LOCATION:D.M2 D.2115 ADMISSION DATE:04/26/19 SURGEON: BALJINDER HUBER MD DATE OF OPERATION: 04/27/2019 PROCEDURES: 1. PTCA stent LAD diagonal. 2. Left heart catheterization. 3. Selective coronary angiography. 4. Left ventriculogram. INDICATION: Unstable angina and coronary artery disease. PROCEDURE IN DETAIL: After informed consent was obtained and after a detailed description of risks, benefits as well as alternative therapies, the patient elected to proceed with angiogram and angioplasty. The right radial area was prepped and draped in normal sterile fashion. Right radial artery was cannulated via modified Seldinger technique with placement of a 6-Greenlandic sheath. All catheters exchanged through this sheath. FINDINGS: Left ventriculogram was performed in standard 30-degree RICHARDSON view, reveals good cardiac wall motion, ejection fraction estimated 60%. SELECTIVE CORONARY ANGIOGRAPHY: 1. Left main is with no significant angiographic disease and has a previously placed stent with no significant restenosis, no thrombosis. 2. Left anterior descending has previously placed stents. The stents are widely patent. There is a relatively large diagonal that takes off in the stented area that has a 95% stenosis at the ostium. 3. Left circumflex has moderate irregularities, but no flow-limiting stenosis. 4. Right coronary artery has a previously placed stent that is widely patent with no significant restenosis or thrombosis, no disease elsewise throughout the RCA or its branches. PTCA STENT OF THE LAD DIAGONAL: The stent used was a 2.0 x 8 mm [place]. Result was 0% residual stenosis. OVERALL IMPRESSION: Successful percutaneous transluminal coronary angioplasty stent of the left anterior descending diagonal going from 95% initial stenosis to 0% residual. TRANSINT:[id number] Voice Confirmation ID: [id number] DOCUMENT ID: [id number] BALJINDER HUBER MD at 1109 CC: [id number] DICTATION DATE: 04/27/19 1257 MANAGER MARKET RESEARCH: 04/27/19 1304 DIS IN 04/27/19 [facility] [address] [place] [address]
== END 2019-04-27 17:19 | disposition home or self-care (01) ==
LOC: D.ER 15:46 → OBSVTIME 19:40 → D.M2 19:40
PROVIDERS: Emergency Medicine; Family Medicine; Internal Medicine Cardiovascular Disease; ADMIT Family Medicine; ATTEND Family Medicine
DX: I25.110 Atherosclerotic heart disease of native coronary artery with unstable angina pectoris (principal); R07.9 Chest pain, unspecified; M79.605 Pain in left leg; R22.42 Localized swelling, mass and lump, left lower limb
CPT/HCPCS: 93458; C9600

== ENCOUNTER 2019-06-06 14:40 | Emergency (ER) | payer MEDICARE ==
[~2019-06-06] VITALS: Ht 167.6 cm; Wt 90.9 kg
[~2019-06-06 14:40] MED LIST changes: +BENADRYL25 MG PO; +EFFIENT10 MG PO
[2019-06-06 15:05] LABS: BASOPHILS 0.5 % (0-2); EOSINOPHILS 1.4 % (0-7); HEMATOCRIT 39.1 % (36.0-48.0); HEMOGLOBIN 12.9 g/dL (12-16); IMMATURE GRANULOCYTES 0.2 % (0-5); LYMPHOCYTES 49.5 % (15-50); MCH 28.6 pg (26.0-34.0); MCV 86.7 fL (80.0-100.0); MEAN PLATELET VOLUME 10.5 fL (7.4-10.4); MONOCYTES 7.5 % (2-11); NEUTROPHILS 40.9 % (40-80); PLATELET COUNT 230 10x3/uL (130-400); RBC 4.51 10x6/uL (4.00-5.40); RDW 13.1 % (11.5-14.5); WBC 5.8 10x3/uL (4.8-10.8)
[2019-06-06 15:56] LABS: ALBUMIN 3.3 g/dL (3.4-5.0); ALKALINE PHOSPHATASE 84 U/L (46-116); ALT (SGPT) 28 U/L (10-68); BILIRUBIN - TOTAL 0.23 mg/dL (0.2-1.3); CALC OSMOLALITY 277 mosm/kg (275-300); CALCIUM 8.3 mg/dL (8.5-10.1); CARBON DIOXIDE 27.8 mmol/L (21.0-32.0); CHLORIDE - SERUM 105 mmol/L (98-107); CREATININE - SERUM 0.9 mg/dL (0.6-1.3); GLUCOSE 113 mg/dL (74-106); POTASSIUM - SERUM 3.7 mmol/L (3.5-5.1); PROTEIN - SERUM 6.7 g/dL (6.4-8.2); SODIUM 139 mmol/L (136-145); UREA NITROGEN 11 mg/dL (7-18); eGFR NON AFRICAN AMERICAN 67 mL/min (90-120)
[2019-06-06 15:58] LABS: APTT 26.3 SECONDS (22.8-39.4); INR 0.91 (0.85-1.17); PROTIME 11.7 SECONDS (11.6-15.0)
[2019-06-06 16:10] LABS: CKMB 0.4 U/L (0.0-3.6); CREATINE KINASE 42 UL (21-215); MAGNESIUM - SERUM 1.9 mg/dL (1.8-2.4)
[2019-06-06 16:11] LABS: TROPONIN-I < 0.017 ng/mL (0.000-0.060)
[2019-06-06 17:06] VITALS: Ht 167.6 cm; Wt 90.9 kg
[2019-06-06 17:44] VITALS: BP 131/75
--- NOTE | 2019-06-15 13:30 | CN ---
PATIENT NAME:KRISTOPHER OGDEN MEDICAL RECORD: [id number] : 51 LOCATION:D.ER ADMIT DATE: ACCOUNT: [id number] CONSULTING PHYSICIAN: BALJINDER HUBER MD REFERRING PHYSICIAN: MAYLIN MACKAY MD DATE OF CONSULTATION: 06/06/2019 DIAGNOSES: 1. Angina. 2. Coronary artery disease. 3. Previous percutaneous transluminal coronary angioplasty stent. 4. Hyperlipidemia. HISTORY OF PRESENT ILLNESS: Mrs. Ogden presents with angina that came on today, it is resolved after 2 sublingual nitro. She has a history of cardiac stenting, the last being approximately a month ago with PTCA stent of the LAD diagonal. There was no other significant disease at that time. Her EKG is normal. Her troponin is normal. She is totally pain free at this time. PHYSICAL EXAMINATION: CONSTITUTIONAL/GENERAL APPEARANCE: Well nourished, well developed, appears stated age. EYES: Lids and conjunctivae noninjected. No discharge. No pallor. ENT: Lips within normal limit. No cyanosis. No pallor. NECK: Carotid arteries, bilateral normal upstroke. No bruits. No thrills. No jugular venous pressure or distention. CERVICAL LYMPH NODES: Nontender. Nonenlarged. THYROID: Not enlarged. No nodules. CARDIOVASCULAR: Precordial exam, nondisplaced. No heaves or pericardial thrills. Rate and rhythm, regular. Heart sounds, normal S1, normal S2. No S3, no gallop, no rub. Systolic murmur, not heard. Diastolic murmur, not heard. RESPIRATORY: Respiratory effort, unlabored. Normal curvature. No thoracic deformity. No chest wall tenderness. Percussion, resonant. Auscultation, clear. No wheezes, no rales, no rhonchi. ABDOMEN: Soft, nondistended, nontender. No abdominal pain, no vomiting and normal appetite. MUSCULOSKELETAL: No joint tenderness, normal gait, normal tone. SKIN: Warm and dry. OVERALL IMPRESSION: Chest pain compatible with angina. At this time, we will start her on a nitropatch 0.4 mg an hour every day. We will see her as scheduled on the . If she has recurrent chest pain, she will get hold of us before that. TRANSINT:[id number] Voice Confirmation ID: [id number] DOCUMENT ID: [id number] BALJINDER HUBER MD at 1330 CC: [id number] DICTATION DATE: 06/06/19 1704 FIELD REPRESENTATIVE/HEALTH EDUCATION: 06/07/19 0126 DEP ER 06/06/19 [id number] [place] [address]
== END 2019-06-06 17:43 | disposition home or self-care (01) ==
LOC: D.ER 14:40
PROVIDERS: Family Medicine
DX: R07.9 Chest pain, unspecified (principal); I25.10 Atherosclerotic heart disease of native coronary artery without angina pectoris; E78.5 Hyperlipidemia, unspecified

== ENCOUNTER 2019-07-25 13:50 | Observation (INO) | payer MEDICARE ==
[~2019-07-25] VITALS: Ht 167.6 cm; Wt 90.9 kg
--- NOTE | ~2019-07-25 | HEMODYNAMI ---
PATIENT:KRISTOPHER OGDEN MEDICAL RECORD: [id number] : 51 [facility] [id number] ADMISSION DATE: 07/25/19 Generatedon:07/26/201914:57 Patient name: KRISTOPHER OGDEN Patient #: [id number] SSN: [id number] : 1955 Date of study: 07/26/2019 Page: Of Hemodynamic Procedure Report Patient Data Patient Demographics Procedure consent was obtained First Name: KRISTOPHER Gender: Female Last Name: ALIN : 1955 Middle Initial: J Age: 64 year(s) Patient #: [id number] Race: Ethnicity: or SSN: [id number] Additional ID: [id number] Contact details Address: [address] [place] [address] State: [place] City: [facility] Zip code: [address] Past Medical History History of disease Date Diagnosis Comments CAD Allergies: No known allergies Admission Admission Data Admission Date: 07/25/2019 Admission Time: 14:31 Room #: .2120 Height (in.): 66 BSA: 2 (m2) Height (cm.): 167.64 BMI: 32.38 (kg/m2) Weight (lbs.): 200.62 Weight (kg.): 91 Lab Results Lab Result Date: 07/26/2019 Lab Result Time: 0:00 Biochemistry Name Units Result Min Max BUN mg/dl 11 --(-*--)-- 7 18 eGFR ml/min 88.52747 -*(----)-- 90 120 NONAFRICAN CBC Name Units Result Min Max Hematocrit % 40.2 -*(----)-- 42 54 Hemoglobin g/dl 12.9 -*(----)-- 13.5 17.5 Procedure Procedure Types Cath Procedure Diagnostic Procedure LHC LHC w/Coronaries Procedure Description Procedure Date Procedure Date: 07/26/2019 Procedure Start Time: 14:45 Procedure End Time: 14:55 Procedure Staff Name Function Junior Parks MD Performing Physician Monika Doll RT Monitor Kiara Gasca RT Scrub Buddy Multani RN Nurse Indication Angina Procedure Data Cath Procedure Fluoroscopy Diagnostic fluoroscopy Total fluoroscopy Time: 1.9 time: 1.9 min min Diagnostic fluoroscopy Total fluoroscopy dose: 452 dose: 452 mGy mGy Contrast Material Contrast Material Type Amount (ml) Isovue 300 68 Entry Location Entry Primary Successful Side Size Upsize Upsize Entry Closure Mendoza ccessful Closure Location (Fr) 1 (Fr) 2 (Fr) Remarks Device Remarks Radial Right 6 Fr Mechanical artery Short Compression Estimated blood loss: 5 ml Diagnostic catheters Device Type Used For End Catheter Placement DIAGNOSTIC Robbins 110cm 5 Procedure Fr catheter ([id number]) Procedure Complications No complications Procedure Medications Medication Administration Route Dosage 0.9% NaCl I.V. 100 ml/hr Oxygen etCO2 Nasal cannula 2 l/min Heparin Flush Bag added to field 2 bags (1000units/500ml NS) Lidocaine 2% added to field 20 Radial Cocktail added to field 1 syringe (Verapamil 2mg/Nitro 400mcg/Heparin 1500units) Versed I.V. 1 mg Fentanyl I.V. 50 mcg Radial Cocktail I.A. 1 syringe (Verapamil 2mg/Nitro 400mcg/Heparin 1500units) Versed I.V. 0.5 mg Hemodynamics Rest BSA: 2 (m2) O2 Consumption: Estimated: 177.52 (ml/min) O2 Consumption indexed: E stimated:88.76 (ml/min/m) Heart Rate: 58 (bpm) Pressure Samples Time Site Value (mmHg) Purpose Heart Use Rate(bpm) 14:46 LV 117/-4,7 Snapshot 77 Gradients Valve Time Site Site Mean SEP/DFP Peak To Heart Use 1 2 (mmHg) (sec/min) Peak Rate (mmHg) (bpm) Aortic 14:47 LV AO 80 Snapshots Pre Cath Intra NCS Post Cath Vital Signs Time Heart Resp SPO2 etCO2 NIBP (mmHg) Rhythm Pain Sedation Rate (ipm) (%) (mmHg) Status Level (bpm) 14:34:52 58 13 89 39 131/76(112) NSR 0 (11) 10(A) , No pain 14:39:14 58 14 92 32.9 130/76(101) NSR 0 (11) 10(A) , No pain 14:43:41 60 14 94 26.2 123/70(113) NSR 0 (11) 10(A) , No pain 14:48:03 69 14 92 34.4 111/67(87) NSR 0 (11) 9(A) , No pain 14:52:23 65 15 89 14.9 115/67(87) NSR 0 (11) 9(A) , No pain Medications Time Medication Route Dose Verified Delivered Reason Notes Effectiveness by by 14:32:09 0.9% NaCl I.V. 100 Buddy Buddy Per ml/hr Rangel Multani physician RN RN 14:32:19 Oxygen etCO2 2 l/min Buddy Buddy for low 02 Nasal Lorigan Rangel sats cannula RN RN 14:32:33 Heparin Flush added 2 bags Buddy Buddy used for Bag to Rangel Multani procedure (1000units/500ml field DAMON RN NS) 14:32:45 Lidocaine 2% added 20ml Buddy Buddy for local to vial Lorigan Rangel anesthetic field DAMON RN 14:33:23 Radial Cocktail added 1 Buddy Buddy used for (Verapamil to syringe Diliaigan Rangel procedure 2mg/Nitro field DAMON RN 400mcg/Heparin 1500units) 14:45:03 Versed I.V. 1 mg Buddy Buddy for sedation Rangel Multani RN RN 14:45:11 Fentanyl I.V. 50 mcg Buddy Buddy for sedation Rangel Multani RN RN 14:45:59 Radial Cocktail I.A. 1 Buddy Junior for (Verapamil syringe Rangel Parks MD vasodilation 2mg/Nitro RN 400mcg/Heparin 1500units) 14:46:44 Versed I.V. 0.5 mg Buddy Buddy for sedation Rangel Multani RN paint stripper Log Time Note 14:10:44 Buddy Multani RN sent for patient. Start room use. 14:11:05 Informed consent obtained and on chart 14:11:31 Procedure Status Urgent Heart Cath (IP). 14:11:32 Time tracking: Regular hours (M-F 7:00 - 5:00) 14:11:36 Plan of Care:Hemodynamics will remain stable., Cardiac rhythm will remain stable., Comfort level will be maintained., Respiratory function will remain adequate., Patient/ family verbilizes understanding of procedure., Procedure tolerated without complication., Recovers from procedure without complications.. 14:11:42 H&P Date Dictated: 07/26/2019 Within 30 days and on chart.. 14:12:03 Patient allergic to No known allergies 14:12:33 Lab Result : BUN 11 mg/dl 14:12:33 Lab Result : eGFR NONAFRICAN 88.54737 ml/min 14:12:33 Lab Result : Hemoglobin 12.9 g/dl 14:12:33 Lab Result : Hematocrit 40.2 % 14:12:41 Patient Weight : 200.62 lbs 14:12:45 Patient Height : 66 inches 14:14:59 Indication : Angina 14:17:27 Risk of Mortality: .1 14:17:29 Risk of blood transfusion: .1 14:17:31 Risk of SERVANDO: .3 14:17:38 Stress Test: no; N/A ? 14:17:53 ACC Patient presents with Unstable Angina CCS Anginal Class 4--Inability to carry out any physical activity w/o angina. Angina may occur at rest. 14:21:40 ACCPatient has been prescribed/administered the following anti-anginal medication within the last 2 weeks: None 14:21:58 Patient received from Med II to CCL 1 Alert and oriented. Tansferred to table in Supine position. 14:21:59 Warm blankets applied, and blanca hugger turned on for patient comfort. 14:21:59 Correct patient and procedure confirmed by team. 14:21:59 ECG and BP/O2 sat monitors applied to patient. 14:32:09 0.9% NaCl 100 ml/hr I.V. was administered by Buddy Multani RN; Per physician; Verbal order read back and verified. 14:32:19 Oxygen 2 l/min etCO2 Nasal cannula was administered by Buddy Multani RN; for low 02 sats; Verbal order read back and verified. 14:32:33 Heparin Flush Bag (1000units/500ml NS) 2 bags added to field was administered by Buddy Multani RN; used for procedure; Verbal order read back and verified. 14:32:45 Lidocaine 2% 20ml vial added to field was administered by Buddy Multani RN; for local anesthetic; Verbal order read back and verified. 14:33:23 Radial Cocktail (Verapamil 2mg/Nitro 400mcg/Heparin 1500units) 1 syringe added to field was administered by Buddy Multani RN; used for procedure; Verbal order read back and verified. 14:33:29 Vital chart was started 14:34:56 Baseline sample Acquired. 14:35:02 Rhythm: sinus bradycardia 14:35:03 Full Disclosure recording started 14:35:04 Pre-procedure instructions explained to patient. 14:35:04 Pre-op teaching completed and patient verbalized understanding. 14:35:30 Family in patients room. 14:35:31 Patient NPO since Midnight. 14:35:33 Is the patient allergic to Iodine/contrast media? No. 14:35:34 Is patient on blood thinner?Yes 14:35:36 ACC The patient was administered the following blood thiners within the last 24 hours: ACCEffient 14:35:39 Patient diabetic? No. 14:35:45 Patient not . Patient is over age 55. 14:35:47 Previous problem with sedation/anesthesia? No ? 14:35:48 Snore? Yes 14:35:50 Sleep apnea? Yes 14:35:51 Deviated septum? No 14:35:53 Opens mouth fully? Yes 14:35:55 Sticks out tongue? Yes 14:36:01 Airway obstruction? No ? 14:36:05 Dentures? No ? 14:36:08 Modified Carlos's test Ulnar < 7 seconds 14:36:19 IV patent on arrival in right forearm with 0.9% NaCl at [facility]. 14:36:23 Lab results completed and on chart. 14:36:27 Right Radial & Right Groin area was prepped with chlora-prep and draped in sterile fashion 14:36:28 Alarms reviewed by R. N. 14:36:28 Sharps counted by scrub and verified by R.N. 14:37:02 Use device set Radial Dx or PCI 14:39:01 ACIST Syringe (34048) opened to sterile field. 14:39:02 Bag Decanter () opened to sterile field. 14:39:02 ACIST Hand Control (05034) opened to sterile field. 14:39:02 ACIST Manifold (12988) opened to sterile field. 14:39:03 Tegaderm 4 x 4 (1626W) opened to sterile field. 14:39:16 Medline Cath Pack ([id number]) opened to sterile field. 14:39:16 IMT Wrist Support ([id number]) opened to sterile field. 14:39:17 NEEDLE Cook 21G 4cm Radial (L20987) opened to sterile field. 14:39:18 EMERALD Guide Wire (100-664) opened to sterile field. 14:39:18 SHEATH 6FR RAIN (9268237) opened to sterile field. 14:39:39 Zero performed for pressure channel P1 14:39:48 --------ALL STOP TIME OUT------ 14:39:49 Final Timeout: patient, procedure, and site verified with staff and physician. All members of the team are in agreement. 14:39:51 Right Radial & Right Groin site verified by team. 14:39:54 Fire Safety Assessment: A--An alcohol-based skin anteseptic being used preoperatively., C--Open oxygen or nitrous oxide is being used., D--An ESU, laser, or fiber-optic light is being used. 14:39:57 Physical assessment completed. ASA score P 2 - A patient with mild systemic disease as per Junior Parks MD. 14:40:01 2) 60-89 Mildly reduced kidney function, and other findings (as for stage 1) point to kidney disease. 14:40:08 Maximum allowable contrast dose (3.7 X eGFR X 0.75)247 ml. 14:40:11 Sedation plan: IV Moderate Sedation Medication:Versed, Fentanyl 14:44:00 Procedure started. 14:44:38 Zero performed for pressure channel P1 14:45:03 Versed 1 mg I.V. was administered by Buddy Multani RN; for sedation; Verbal order read back and verified. 14:45:11 Fentanyl 50 mcg I.V. was administered by Buddy Multani RN; for sedation; Verbal order read back and verified. 14:45:35 Local anesthetic to right radial artery with Lidocaine 2% by Junior Parks MD.INITIAL ACCESS ONLY 14:45:48 A 6 Fr Short sheath was inserted into the Right Radial artery 14:45:59 Radial Cocktail (Verapamil 2mg/Nitro 400mcg/Heparin 1500units) 1 syringe I.A. was administered by Junior Parks MD; for vasodilation; Verbal order read back and verified. 14:46:03 A DIAGNOSTIC Robbins 110cm 5 Fr catheter (941250) was advanced over the wire and used for Procedure. 14:46:32 LV gram done using RICHARDSON 14:46:34 Injector settings: Ml/sec: 5, Volume: 15, 14:46:44 Versed 0.5 mg I.V. was administered by Buddy Multani RN; for sedation; Verbal order read back and verified. 14:47:01 LV hemodynamics recorded. 14:47:18 EF : 60 % 14:49:47 LCA angiography performed. 14:49:48 RCA angiography performed. 14:50:00 ACCDominant side:Right 14:50:37 Catheter removed. 14:50:40 ZEPHYR REGULAR TR BAND (490856) opened to sterile field. 14:51:14 Procedure ended.(Physican Out) 14:51:30 Sheath removed intact; hemostasis achieved with Mechanical Compression to the Right Radial artery. 14:51:39 Fluoroscopy time 01.90 minutes. 14:52:32 Flurop Dose total: 452 14:52:32 Fluoroscopy dose: 452 mGy 14:52:42 Dose Area Product 98704 mGy/cm. 14:52:45 Contrast amount:Isovue 300 68ml. 14:52:48 Maximum allowable dose exceeded? No. 14:52:49 Sharps counted by scrub and verified by R.N. 14:52:54 [place] band inflated with 10cc of air. 14:52:55 Insertion/operative site no bleeding no hematoma. 14:52:59 Post-procedure physical assessment completed. ASA score P 2 - A patient with mild systemic disease as per Junior Parks MD. 14:53:02 Post procedure rhythm: sinus rhythm 14:53:06 Estimated blood loss: 5 ml 14:53:07 Post procedure instruction explained to patient.Patient verbalizes understanding. 14:53:08 Patient needs reinforcement of post procedure teaching. 14:54:17 Procedure Complication : No complications 14:54:33 [facility] Findings: mild to moderate CAD (<70%) 14:54:36 Operative report dictated upon procedure completion. 14:54:36 See physician's report for complete and final results. 14:54:52 Procedure and supply charges have been captured, reviewed, submitted and are correct. 14:54:56 Vital chart was stopped 14:54:59 Report given to Med II. 14:55:02 Patient transfered to Med II with Bed. 14:55:03 Procedure ended. 14:55:03 Full Disclosure recording stopped 14:55:07 End room use (Document Last) Device Usage Item Name Manufacture Quantity Catalog Hospital Part Current Minima l Lot# / Number Charge Number Stock Stock Serial# Code ACIST Acist 1 59258 799481 919924 770611 20 Syringe Medical (43277) Systems Inc Bag Microtek 1 2001S 296502 90391 705582 5 Decanter Medical Inc. (2001S) ACIST Hand Acist 1 61464 950720 888053 790506 5 Control Medical (97173) Systems Inc ACIST Acist 1 28701 107430 139727 227124 5 Manifold Medical (67648) Systems Inc Tegaderm 4 3M 1 1626W 174154 941160 247094 5 x 4 (1626W) Medline Medline 1 [id number] 561137 61412 933839 5 Cath Pack ([id number]) MBrace Advanced 1 140-0250-00 111705 90045 362136 5 Wrist Vascular Support Dynamics (073811832) NEEDLE Cook Cook Medical 1 [id number] 656384 202411 132485 5 21G 4cm Radial (A91280) EMERALD Cardinal 1 502-455 792186 989192 789728 5 Guide Wire Health (502-455) SHEATH 6FR Cardinal 1 8790344 455932 2934805 607699 5 [facility] Health (3073822) DIAGNOSTIC Terumo 1 40-8073 701811 655819 990142 5 Robbins 110cm 5 Fr catheter (533824) ZEPHYR Cardinal 1 823025 408299 6270958 318143 5 REGULAR TR Health BAND (916469) Signature Audit [place] Stage Time Signature Unsigned Intra-Procedure 07/26/2019 Monika Doll 2:56:26 PM RT(R) Intra-Procedure 07/26/2019 Buddy 2:56:48 PM Rangel DAMON Intra-Procedure 07/26/2019 Junior Parks MD 2:57:17 PM [id number] [place] [address]
[2019-07-25 14:42] LABS: HEMATOCRIT 43.2 % (36.0-48.0); HEMOGLOBIN 13.7 g/dL (12-16); MCH 27.8 pg (26.0-34.0); MCHC 31.7 g/dL (31.0-37.0); MCV 87.8 fL (80.0-100.0); MEAN PLATELET VOLUME 10.6 fL (7.4-10.4); PLATELET COUNT 246 10x3/uL (130-400); RBC 4.92 10x6/uL (4.00-5.40); RDW 13.6 % (11.5-14.5); WBC 6.3 10x3/uL (4.8-10.8)
[2019-07-25 14:50] LABS: CALC OSMOLALITY 280 mosm/kg (275-300); CALCIUM 9.3 mg/dL (8.5-10.1); CARBON DIOXIDE 28.6 mmol/L (21.0-32.0); CHLORIDE - SERUM 106 mmol/L (98-107); CREATININE - SERUM 0.9 mg/dL (0.6-1.3); GLUCOSE 80 mg/dL (74-106); POTASSIUM - SERUM 3.7 mmol/L (3.5-5.1); SODIUM 142 mmol/L (136-145); UREA NITROGEN 11 mg/dL (7-18); eGFR NON AFRICAN AMERICAN 66 mL/min (90-120)
[2019-07-25 14:54] LABS: INR 0.92 (0.85-1.17); PROTIME 11.9 SECONDS (11.6-15.0)
[2019-07-25 15:04] LABS: ALBUMIN 3.7 g/dL (3.4-5.0); ALKALINE PHOSPHATASE 78 U/L (46-116); ALT (SGPT) 30 U/L (10-68); BILIRUBIN - TOTAL 0.32 mg/dL (0.2-1.3); CKMB 0.6 U/L (0.0-3.6); CREATINE KINASE 35 UL (21-215); PROTEIN - SERUM 7.5 g/dL (6.4-8.2)
[2019-07-25 15:10] LABS: TROPONIN-I < 0.017 ng/mL (0.000-0.060)
--- NOTE | 2019-07-25 15:14 | NUR ---
PRE-OPS GIVEN. TO CARDIO CLINICIAN BY BED.
[2019-07-25 15:20] LABS: EOSINOPHILS 2 % (0-7); LYMPHOCYTES 53 % (15-50); MONOCYTES 12 % (2-11); NEUTROPHILS 33 % (40-80); PLATELET ESTIMATE NORMAL
[2019-07-25 16:02] VITALS: BP 130/77; BMI 32.3
[2019-07-25 16:17] VITALS: BP 130/77
[2019-07-25 17:09] VITALS: Ht 167.6 cm; Wt 90.9 kg
[2019-07-25 17:42] LABS: CHOL - HDL RATIO 5.8 ratio (2.3-4.1); LDL-HDL RATIO 4.2 ratio (1.5-3.5)
--- NOTE | 2019-07-25 19:54 | NUR ---
RECEIVED BEDSIDE REPORT. PATIENT IS ALERT AND ORIENTED. RESTING IN BED. RESPIRATIONS ARE EVEN AND UNLABORED. PATIENT C/O CHEST PAIN, NITRO GIVEN. PATIENT REASSESSED Q 5 MINUTES. PATIENT NO LONGER HAS C/O CHEST PAIN. CALL LIGHT WITHIN REACH. WILL CPOC.
[2019-07-25 20:30] VITALS: BP 112/64
[2019-07-25 21:10] LABS: CKMB 0.4 U/L (0.0-3.6); CREATINE KINASE 24 UL (21-215); TROPONIN-I < 0.017 ng/mL (0.000-0.060)
[2019-07-26] VITALS (7 sets, daily range): BP systolic 97–180; BP diastolic 55–91
[2019-07-26 04:17] LABS: BASOPHILS 0.6 % (0-2); EOSINOPHILS 1.4 % (0-7); HEMATOCRIT 40.2 % (36.0-48.0); HEMOGLOBIN 12.9 g/dL (12-16); LYMPHOCYTES 58.7 % (15-50); MCHC 32.1 g/dL (31.0-37.0); MCV 87.4 fL (80.0-100.0); MEAN PLATELET VOLUME 10.8 fL (7.4-10.4); MONOCYTES 5.9 % (2-11); NEUTROPHILS 33.4 % (40-80); PLATELET COUNT 202 10x3/uL (130-400); RDW 13.6 % (11.5-14.5); WBC 4.9 10x3/uL (4.8-10.8)
[2019-07-26 04:53] LABS: ALBUMIN 3.1 g/dL (3.4-5.0); ALKALINE PHOSPHATASE 65 U/L (46-116); ALT (SGPT) 29 U/L (10-68); BILIRUBIN - TOTAL 0.38 mg/dL (0.2-1.3); CALC OSMOLALITY 283 mosm/kg (275-300); CALCIUM 8.3 mg/dL (8.5-10.1); CARBON DIOXIDE 28.7 mmol/L (21.0-32.0); CHLORIDE - SERUM 109 mmol/L (98-107); CHOL - HDL RATIO 5.9 ratio (2.3-4.1); CHOLESTEROL, TOTAL 224 mg/dL (0-200); CKMB 0.4 U/L (0.0-3.6); CREATINE KINASE 26 UL (21-215); CREATININE - SERUM 0.7 mg/dL (0.6-1.3); GLUCOSE 94 mg/dL (74-106); HDL CHOLESTEROL 38 mg/dL (32-96); LDL CHOLESTEROL 156 mg/dL (0-100); LDL-HDL RATIO 4.1 ratio (1.5-3.5); POTASSIUM - SERUM 3.6 mmol/L (3.5-5.1); PROTEIN - SERUM 6.4 g/dL (6.4-8.2); SODIUM 143 mmol/L (136-145); TRIGLYCERIDE 153 mg/dL (30-200); UREA NITROGEN 11 mg/dL (7-18); eGFR NON AFRICAN AMERICAN 89 mL/min (90-120)
[2019-07-26 05:01] LABS: TROPONIN-I < 0.017 ng/mL (0.000-0.060)
--- NOTE | 2019-07-26 08:43 | NUR ---
AM MEDS GIVEN AT THIS TIME. PT IN BED EATING A LIGHT BREAKFAST, THEN PT WILL BE NPO FOR PROCEDURE. PT DENIES ANY NEED AT THIS TIME. CALL LIGHT IN REACH, NAD NOTED, WILL CONTINUE TO MONITOR.
--- NOTE | 2019-07-26 09:12 | HP ---
PATIENT: KRISTOPHER OGDEN MEDICAL RECORD: [id number] ACCOUNT: [id number] LOCATION:[address] : 51 ADMISSION DATE: 07/25/19 PCP: LUPIS ARREGUIN MD HISTORY AND PHYSICAL EXAMINATION CHIEF COMPLAINT: Chest pain. HISTORY OF PRESENT ILLNESS: A 64-year-old female woke up this morning stating that she just did not feel well. She had nausea, some chest tightness, pressure, left arm tingling, numbness. These are symptoms similar to what she has had in the past when she has had coronary artery disease. She has had a stent in September 2017, February 2019, and April 2019. She is admitted for further evaluation. PAST MEDICAL HISTORY: Coronary artery disease, depression, osteoarthritis, stress incontinence, hyperlipidemia, reflux, and hiatal hernia. PAST SURGICAL HISTORY: Stents as above. 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 She has had a bunionectomy, bladder suspension, hysterectomy. DRUG ALLERGIES: None. HOME MEDICATIONS: Effient 10 mg once a day, Lexapro 20 mg once a day, Lipitor 80 mg once a day, aspirin 81 mg, and Nexium once a day. SOCIAL HISTORY: Retired, . FAMILY HISTORY: Father had cancer. Mother had heart disease. HABITS: Former smoker, no alcohol or drugs. REVIEW OF SYSTEMS: GENERAL: No major weight changes. HEENT: No particular sinus or allergy problems. RESPIRATORY: No history of asthma or emphysema. CARDIAC: See above history. GASTROINTESTINAL: She has reflux. GENITOURINARY: She has had a bladder suspension. MUSCULOSKELETAL: She has osteoarthritis. NEUROLOGIC: No migraines or seizures. PSYCHIATRIC: She has some depression. PHYSICAL EXAMINATION: VITAL SIGNS: Temperature 97.7, heart rate 55, respirations 16, blood pressure 130/77, O2 sats 99%. GENERAL: She is awake and alert. She does not appear to be in acute distress. SKIN: Warm and dry. HEENT: Grossly within normal limits. NECK: Supple. No JVD or bruit. HEART: Regular rate and rhythm without murmur. LUNGS: Clear. ABDOMEN: Soft, flat, nontender. EXTREMITIES: No edema. LABORATORY DATA: CBC is normal. Basic metabolic panel is normal. INR 0.92. HISTORY AND PHYSICAL [id number] KRISTOPHER OGDEN Liver functions are normal. Troponin 0.017. DIAGNOSTIC DATA: Chest x-ray shows no active process. ASSESSMENT: Chest pain in a patient with known history of coronary artery disease. Last stent was April. PLAN: We will admit, get serial cardiac enzymes. Cardiology has been consulted. Other tests or procedures as warranted. TRANSINT:[id number] Voice Confirmation ID: [id number] DOCUMENT ID: [id number] LUPIS ARREGUIN MD at 0912 CC: [id number] DICTATION DATE: 07/25/19 1800 COOK HELPER VEGETABLE: 07/25/19 1827 ADM IN [facility] [address] [id number]
--- NOTE | 2019-07-26 10:50 | NUR ---
CALLED DR. ARREGUIN TO SEE IF PT CAN HAVE SOMETHING FOR ANXIETY, PT JUST RECIEVED NEWS THAT HER MOTHER IS BEING SENT HOME ON HOSPICE AND PT IS A LITTLE UPSET. WAITING TO HEAR BACK FROM DR. ARREGUIN'S OFFICE. 1051- RECEIVED CALL BACK FROM ARTIS FROM DR. ARREGUIN'S OFFICE, NEW ORDER FOR ATIVAN 0.5MG PO ONE TIME DOSE.
--- NOTE | 2019-07-26 14:15 | NUR ---
PT TO INSURANCE SALESMAN AT THIS TIME.
--- NOTE | 2019-07-26 15:15 | NUR ---
RECEIVED PT BACK TO ROOM 2119 PT A/O X4, ZYPHYR BAND TO RT WRIST, NO S/S OF HEMATOMA. VITAL SIGNS STABLE, PLACED PT ON FREQUENT VITAL SIGNS. CALL LIGHT IN REACH, FAMILY AT BEDSIDE, NAD NOTED.
--- NOTE | 2019-07-26 15:42 | NUR ---
CALLED DR. ARREGUIN'S OFFICE AND TALKED TO ARTIS, INFORMED HER THAT PT HAD A CLEAN HEART CATH AND PT AND FAMILY WANTED TO KNOW IF PT COULD BE DISCHARGE. ARTIS WILL CALL BACK TO LET THIS NURSE KNOW.
--- NOTE | 2019-07-26 16:23 | NUR ---
4MG OF MORPHINE GIVEN FOR PAIN LEVEL OF 5/10. NO CHANGES TO RT WRIST FROM PREVIOUS ASSESSMENT. NAD NOTED, CALL LIGHT IN REACH, WILL CONTINUE TO MONITOR.
--- NOTE | 2019-07-26 18:01 | NUR ---
REMOVED 3CC OF AIR OUT OF ZEPHYR BAND AND SITE STARTED BLEEDING RE-INSERTED AIR BACK INTO BAND.
--- NOTE | 2019-07-26 19:18 | NUR ---
EVENING ROUNDS COMPLETED. VSS, AAOX3. TR BAND ON R.RADIAL. NO S/S OF BLEEDING AT THIS TIME. PT DC PAPER READY AWAITING BLEEDING TO STOP THEN WILL DC. PT DENIES ANY NEEDS FOR PAIN AT THIS TIME. WILL CPOC.
--- NOTE | 2019-07-26 19:55 | NUR ---
PT C/O THAT HAND IS STILL HURTING. AND SHE STATED THAT SINCE HER TR BAND IS STILL BLEEDING, SHE DOES NOT FEEL COMFORTABLE GOING HOME. SPOKE WITH DR PALACIOS, HE STATED TO KEEP THE PT FOR THE NIGHT AND DC IN THE AM.
[2019-07-27 00:13] VITALS: BP 118/66
[2019-07-27 04:45] VITALS: BP 119/78
--- NOTE | 2019-07-27 07:55 | NUR ---
ALERT AND ORIENTED. TR BAND SITE WITH DRSG DRY AND INTACT. IV TO RIGHT ARM REMOVED WITH TIP INTACT. PT DCD .INSTRUCTIONS GIVEN TO PT. TO PRIVATE CAR PER WHEEL CHAIR.
--- NOTE | 2019-07-28 09:41 | MORECARE ---
CASE MANAGEMENT DISCHARGE SUMMARY PATIENT: KRISTOPHER OGDEN UNIT: [id number] ADM DATE: 07/25/19 AGE: 64 : 51 SEX: F ROOM/BED: D.2119 AUTHOR: DAREN LEBLANC PHYSICIAN: REFERRING PHYSICIAN: LUPIS ARREGUIN MD DATE OF SERVICE: 07/28/19 Discharge Plan Patient Name: KRISTOPHER OGDEN [facility] [facility] 1955 Planned Disposition: Home Anticipated Discharge Date: 07/27/19 Discharge Date: 07/27/2019 Expected LOS: 2 Initial Reviewer: [email or web address] Initial Review Date: 07/28/2019 Generated: 07/28/19 10:41 am Coverage Notice Reviewer: [email or web address] Mona Elena Notice Issued Date-Time: 07/25/2019 14:20 Notice Type: Medicare Outpatient Observation Notice Notice Delivered To: Patient Relationship to Patient: Freight Car Inspector Name: Delivery Method: HAND - Hand Delivered Ernestina Days: Prior Verbal Notification: Recipient Understood Notice: Recipient Signature: Med Rec Note Co-signed by Attending: Coverage Notice Comment: TRINH delivered, explained, signed by the patient, and placed in his chart. Signed form also left with patient. Marilyn Elena RN , [facility] Patient Name: KRISTOPHER OGDEN Page [id number] at 0941 All edits/amendments must be made on the electronic document DICTATION DATE: 07/28/19940 MANAGER LONG TERM CARE: MICHAEL 07/28/19940 RPT#: [id number] DC DATE:07/27/19 STATUS: DIS IN [facility] [address] [place] [address] END OF REPORT
== END 2019-07-27 09:18 | disposition home or self-care (01) ==
LOC: D.ER 13:50 → D.M2 14:31 → OBSVTIME 14:50 → D.M2 07-27 09:18
PROVIDERS: Family Medicine; Internal Medicine Cardiovascular Disease; ADMIT Family Medicine; ATTEND Family Medicine
DX: I25.110 Atherosclerotic heart disease of native coronary artery with unstable angina pectoris (principal); F32.9 Major depressive disorder, single episode, unspecified; E78.5 Hyperlipidemia, unspecified

== ENCOUNTER → 2019-07-28 10:08 | Outpatient (CLI) | payer MEDICARE ==
[2019-07-25 17:09] VITALS: BMI 32.3
[2019-07-28 10:57] LABS: HEMATOCRIT 39.8 % (36.0-48.0); LYMPHOCYTES 43.7 % (15-50); MCH 28.1 pg (26.0-34.0); MCHC 32.7 g/dL (31.0-37.0); MEAN PLATELET VOLUME 10.7 fL (7.4-10.4); PLATELET COUNT 188 10x3/uL (130-400); RBC 4.63 10x6/uL (4.00-5.40); RDW 13.1 % (11.5-14.5); WBC 4.7 10x3/uL (4.8-10.8)
== END | disposition home or self-care (01) ==
LOC: D.LAB 10:08
PROVIDERS: ATTEND Internal Medicine Gastroenterology
DX: R10.13 Epigastric pain (principal); R11.0 Nausea; K59.00 Constipation, unspecified; R12 Heartburn

== ENCOUNTER → 2020-01-24 18:32 | Outpatient (CLI) | payer MEDICARE ==
[2019-07-25 17:09] VITALS: BMI 32.3
[2020-01-24 18:54] LABS: BASOPHILS 0.3 % (0-2); EOSINOPHILS 0.9 % (0-7); HEMATOCRIT 43.4 % (36.0-48.0); HEMOGLOBIN 14.1 g/dL (12-16); IMMATURE GRANULOCYTES 0.2 % (0-5); LYMPHOCYTES 45.2 % (15-50); MCH 28.8 pg (26.0-34.0); MCHC 32.5 g/dL (31.0-37.0); MCV 88.8 fL (80.0-100.0); NEUTROPHILS 46.4 % (40-80); RBC 4.89 10x6/uL (4.00-5.40); RDW 13.3 % (11.5-14.5); WBC 5.9 10x3/uL (4.8-10.8)
[2020-01-24 19:00] LABS: URIC ACID 4.2 mg/dL (2.6-7.2)
[2020-01-24 19:16] LABS: PLATELET COUNT 257 10x3/uL (130-400)
[2020-01-24 21:13] LABS: ERYTHROCYTE SEDIMENTATION RATE 8 mm/hr (0-30)
[2020-01-26 11:09] LABS: ANA REFLEX - DIRECT Negative (Negative)
== END | disposition home or self-care (01) ==
LOC: D.LABREF 18:32
PROVIDERS: ATTEND Clinical Nurse Specialist Family Health
DX: M25.562 Pain in left knee (principal)

== ENCOUNTER → 2020-01-26 07:54 | Outpatient (CLI) | payer MEDICARE ==
[2019-07-25 17:09] VITALS: BMI 32.3
== END | disposition home or self-care (01) ==
LOC: D.MRI 07:54
PROVIDERS: ATTEND Clinical Nurse Specialist Family Health
DX: M25.562 Pain in left knee (principal)

== ENCOUNTER → 2020-06-12 08:45 | Outpatient (CLI) | payer MEDICARE ==
[2019-07-25 17:09] VITALS: BMI 32.3
== END | disposition home or self-care (01) ==
LOC: D.CT 08:45
PROVIDERS: ATTEND Family Medicine
DX: R91.8 Other nonspecific abnormal finding of lung field (principal)